=== PATIENT | female | born 1955 | race Caucasian/White ===

== ENCOUNTER 2018-03-11 11:48 | Observation (INO) ==
--- NOTE | 2018-03-11 12:14 | ED ---
HPI General Chief Complaint: Respiratory Symptoms Stated Complaint: Respiratory Issue Time Seen by Provider: 03/11/18 11:53 Source: patient and EMS Mode of arrival: EMS Limitations: no limitations History of Present Illness HPI Narrative: 62 y/o female presents with cough and shortness of breath over the past couple of days. Today she developed some chest pressure that feels like something is sitting on her. She was given aspirin prior to arrival. She was not given any breathing treatments that she was not wheezing. She states she has had cardiac workup but it has been multiple years ago from what she can remember. She states having her sugar in the 300s is actually pretty controlled for her as it usually is in the 500s. MD Complaint: cough Onset (ago): day(s) Duration: intermittent Severity: moderate Relieving factors: nothing Exacerbating factors: nothing Able to tolerate fluids by mouth: Yes Associated symptoms: other (Chest pain) Treatments prior to arrival: aspirin Related Data Allergies Allergy/AdvReac Type Severity Reaction Status Date / Time penicillin G Allergy Severe Swelling Verified 03/11/18 12:04 Sulfa (Sulfonamide Allergy Severe Itching Verified 03/11/18 12:04 Antibiotics) *MDRO Multi-Drug Resistant AdvReac Unknown Itching, Uncoded 03/11/18 12:04 Organism Localized Review of Systems Except as stated in HPI: all other systems reviewed are negative Exam Narrative Exam Narrative: GENERAL: 62-year-old female in no apparent distress SKIN: Focused skin assessment warm/dry. HEAD: Atraumatic. Normocephalic. EYES: Pupils equal and round. No scleral icterus. No injection or drainage. ENT: No nasal bleeding or discharge. Mucous membranes pink and moist. NECK: Trachea midline. No JVD. CARDIOVASCULAR: Regular rate and rhythm. No murmur appreciated. RESPIRATORY: No accessory muscle use. Clear to auscultation. Breath sounds equal bilaterally. GASTROINTESTINAL: Abdomen soft, non-tender, nondistended. MUSCULOSKELETAL: No obvious deformities. No clubbing. No cyanosis. No edema. NEUROLOGICAL: Awake and alert. Motor grossly within normal limits. Normal speech. PSYCHIATRIC: Appropriate mood and affect; insight and judgment normal. Course Reevaluation(s) Reevaluation #1: Patient will intermittently need oxygen when she falls asleep. Likely sleep apnea but will check CT pulmonary to rule out PE Reevaluation #2: CT without PE. Patient no COPD exacerbation currently. Agrees to chest pain center observation for chest pain given cardiac risk factors Initial Documented Vital Signs Temperature 99 F 03/11/18 11:58 Pulse Rate 86 03/11/18 11:58 Respiratory Rate 24 03/11/18 11:58 Blood Pressure 134/82 03/11/18 11:58 Pulse Oximetry 92 L 03/11/18 11:58 Last Documented Vital Signs Temperature 99 F 03/11/18 11:58 Pulse Rate 86 03/11/18 12:14 Respiratory Rate 24 03/11/18 12:14 Blood Pressure 134/82 03/11/18 11:58 Pulse Oximetry 94 L 03/11/18 12:14 Medical Decision Making MDM Narrative Medical decision making narrative: Will check blood work, imaging and dose with DuoNeb to see if this improves her symptoms and reevaluate. Given cardiac risk factors she will need monitoring overnight for further care even though symptoms are atypical Differential Diagnosis Differential Diagnosis: COPD, pneumothorax, AL, gastritis Lab Data Lab results reviewed: Yes I reviewed the patient's lab results. Result diagrams: 03/11/18 12:30 03/11/18 12:30 Lab Results 03/11/18 03/11/18 03/11/18 Range/Units 12:30 12:30 12:30 WBC 9.6 (4.0-11.0) th/mm3 RBC 5.29 (4.00-5.30) mil/mm3 Hgb 14.8 (11.6-15.3) gm/dL Hct 45.6 (35.0-46.0) % MCV 86.1 (80.0-100.0) fL MCH 27.9 (27.0-34.0) pg MCHC 32.4 (32.0-36.0) % RDW 15.6 (11.6-17.2) % Plt Count 235 (150-450) th/mm3 MPV 9.0 (7.0-11.0) fL Neut % (Auto) 67.4 (16.0-70.0) % Lymph % (Auto) 21.8 (9.0-44.0) % [place] % (Auto) 6.7 (0.0-8.0) % Eos % (Auto) 3.4 (0.0-4.0) % Baso % (Auto) 0.7 (0.0-2.0) % Neut # (Auto) 6.5 (1.8-7.7) th/mm3 Lymph # (Auto) 2.1 (1.0-4.8) th/mm3 [place] # (Auto) 0.6 (0.0-0.9) th/mm3 Eos # (Auto) 0.3 (0.0-0.4) th/mm3 Baso # (Auto) 0.1 (0.0-0.2) th/mm3 WBC Differential . Differential Comment Auto diff final PT 10.1 (9.8-11.6) sec INR 1.0 Ratio APTT 21.3 L (24.3-30.1) sec Sodium (136-145) meq/L Potassium (3.5-5.1) meq/L Chloride (98-107) meq/L Carbon Dioxide (21.0-32.0) meq/L Anion Gap (5-15) meq/L BUN (7-18) mg/dL Creatinine (0.50-1.00) mg/dL Estimated GFR (>89) mL/min Random Glucose (74-106) mg/dL Calcium (8.5-10.1) mg/dL Magnesium (1.5-2.5) mg/dL Total Bilirubin (0.2-1.0) mg/dL AST (15-37) U/L ALT (10-53) U/L Alkaline Phosphatase (45-117) U/L Total Creatine Kinase (26-192) U/L Troponin I (0.02-0.05) ng/mL B-Natriuretic Peptide 27 (0-100) pg/mL Total Protein (6.4-8.2) g/dL Albumin (3.4-5.0) g/dL 03/11/18 Range/Units 12:30 WBC (4.0-11.0) th/mm3 RBC (4.00-5.30) mil/mm3 Hgb (11.6-15.3) gm/dL Hct (35.0-46.0) % MCV (80.0-100.0) fL MCH (27.0-34.0) pg MCHC (32.0-36.0) % RDW (11.6-17.2) % Plt Count (150-450) th/mm3 MPV (7.0-11.0) fL Neut % (Auto) (16.0-70.0) % Lymph % (Auto) (9.0-44.0) % [place] % (Auto) (0.0-8.0) % Eos % (Auto) (0.0-4.0) % Baso % (Auto) (0.0-2.0) % Neut # (Auto) (1.8-7.7) th/mm3 Lymph # (Auto) (1.0-4.8) th/mm3 [place] # (Auto) (0.0-0.9) th/mm3 Eos # (Auto) (0.0-0.4) th/mm3 Baso # (Auto) (0.0-0.2) th/mm3 WBC Differential Differential Comment PT (9.8-11.6) sec INR Ratio APTT (24.3-30.1) sec Sodium 140 (136-145) meq/L Potassium 4.2 (3.5-5.1) meq/L Chloride 102 (98-107) meq/L Carbon Dioxide 31.5 (21.0-32.0) meq/L Anion Gap 7 (5-15) meq/L BUN 9 (7-18) mg/dL Creatinine 1.21 H (0.50-1.00) mg/dL Estimated GFR 45 L (>89) mL/min Random Glucose 247 H (74-106) mg/dL Calcium 9.1 (8.5-10.1) mg/dL Magnesium 1.7 (1.5-2.5) mg/dL Total Bilirubin 0.2 (0.2-1.0) mg/dL AST 19 (15-37) U/L ALT 30 (10-53) U/L Alkaline Phosphatase 131 H (45-117) U/L Total Creatine Kinase 32 (26-192) U/L Troponin I Less than 0.02 L (0.02-0.05) ng/mL B-Natriuretic Peptide (0-100) pg/mL Total Protein 7.2 (6.4-8.2) g/dL Albumin 3.1 L (3.4-5.0) g/dL Imaging Data Attestation: I personally reviewed and interpreted this imaging study as follows : Radiologist's impression: Chest X-Ray 03/11/18 11:58 CONCLUSION: No acute cardiopulmonary disease. Chest CTA 03/11/18 13:43 CONCLUSION: 1. The study is negative for pulmonary embolism. 2. Platelike atelectasis in the right upper lobe adjacent to the minor fissure. Discharge Plan Discharge Disposition Patient Disposition: 30 Still Patient Discharge Condition Condition: Stable Discharge Details Diagnosis: Chest pain Physicians Team ED Provider: Elvi Burgess Primary Care Provider: Anika Russell Clinical Status ED Status: Admitted Observ[facility] Medical History Medical History COPD exacerbation (Acute) Diabetes (Acute) HTN (hypertension) (Acute) Social History Social History Substance History: No History of Abuse Smoking Status: Current every day smoker Tobacco Type: Cigarettes How Often Do You Have a Drink Containing Alcohol: Never Recent Travel in [place] within the Last 8 Weeks: No Recent Out of Country Travel within the Last 8 Weeks: No Immunization History Tetanus Immunization: <5 Years
--- NOTE | 2018-03-11 12:27 | XR ---
EXAM DATE: 03/11/2018 12:23 PM EDT AGE/SEX: 62 years / Female INDICATIONS: Shortness of breath and chest pressure. CLINICAL DATA: This is the patient's initial encounter. Patient reports that signs and symptoms have been present for 1 week and indicates a pain score of 0/10. MEDICAL/SURGICAL HISTORY: Chronic obstructive pulmonary disease. None. COMPARISON: [facility] [place], CHEST SINGLE AP, 10/27/2015. . FINDINGS: A single AP view of the chest demonstrates the lungs to be symmetrically aerated without evidence of mass, infiltrate or effusion. The cardiomediastinal contours are unremarkable. Osseous structures a re intact. Overlying echocardiogram leads and oxygen tubing are present. CONCLUSION: No acute cardiopulmonary disease. Electronically signed by: Bryce Ashley MD 03/11/2018 12:25 PM EDT
[2018-03-11 12:43] LABS: Baso # (Auto) 0.1 th/mm3 (0.0-0.2); Baso % (Auto) 0.7 % (0.0-2.0); Eos # (Auto) 0.3 th/mm3 (0.0-0.4); Eos % (Auto) 3.4 % (0.0-4.0); Hematocrit 45.6 % (35.0-46.0); Hemoglobin 14.8 gm/dL (11.6-15.3); Lymph # (Auto) 2.1 th/mm3 (1.0-4.8); Lymph % (Auto) 21.8 % (9.0-44.0); Mean Corpuscular HGB Conc 32.4 % (32.0-36.0); Mean Corpuscular Hemoglobin 27.9 pg (27.0-34.0); Mean Corpuscular Volume 86.1 fL (80.0-100.0); Mono # (Auto) 0.6 th/mm3 (0.0-0.9); Mono % (Auto) 6.7 % (0.0-8.0); Neut # (Auto) 6.5 th/mm3 (1.8-7.7); Neut % (Auto) 67.4 % (16.0-70.0); Platelet Count 235 th/mm3 (150-450); Red Blood Count 5.29 mil/mm3 (4.00-5.30); Red Cell Distribution Width 15.6 % (11.6-17.2); White Blood Count 9.6 th/mm3 (4.0-11.0)
[2018-03-11 13:01] LABS: Albumin 3.1 g/dL (3.4-5.0); Anion Gap 7 meq/L (5-15); Aspartate Aminotransferase 19 U/L (15-37); Blood Urea Nitrogen 9 mg/dL (7-18); Calcium 9.1 mg/dL (8.5-10.1); Carbon Dioxide 31.5 meq/L (21.0-32.0); Chloride 102 meq/L (98-107); Glomerular Filtration Rate 45 mL/min (>89); Glucose,Random 247 mg/dL (74-106); Magnesium 1.7 mg/dL (1.5-2.5); Potassium 4.2 meq/L (3.5-5.1); Sodium 140 meq/L (136-145)
[2018-03-11 13:06] LABS: Alanine Aminotransferase 30 U/L (10-53); Alkaline Phosphatase 131 U/L (45-117); Total Protein 7.2 g/dL (6.4-8.2)
[2018-03-11 13:08] LABS: Activated Partial Thrombo Time 21.3 sec (24.3-30.1); Prothrombin Time 10.1 sec (9.8-11.6)
[2018-03-11 13:09] LABS: Creatine Kinase 32 U/L (26-192)
--- NOTE | 2018-03-11 17:46 | CT ---
EXAM DATE: 03/11/2018 5:37 PM EDT AGE/SEX: 62 years / Female INDICATIONS: Shortness of breath and productive cough; rule out pulmonary embolus. CLINICAL DATA: This is the patient's initial encounter. Patient reports that signs and symptoms have been present for 1 week and indicates a pain score of 0/10. MEDICAL/SURGICAL HISTORY: Chronic obstructive pulmonary disease. Diabetes. Hypertension. None. RADIATION DOSE: 10.74 CTDI (mGy) COMPARISON: No prior exams available for comparison. TECHNIQUE: Volumetric scanning was performed using a multi-row detector CT scanner during bolus infu graciela of 71 ml Omnipaque 350 (iohexol) nonionic water-soluble contrast as a single exam dose. The ubaldo a was post processed with a variety of visualization algorithms including full volume maximum intensi ty projection and sliding thin slab reformation. Using automated exposure control and adjustment of t he mA and/or kV according to patient size, radiation dose was kept as low as reasonably achievable to obtain optimal diagnostic quality images. DICOM format image data is available electronically for r eview and comparison. FINDINGS: Pulmonary Arteries: No filling defects are seen in the pulmonary arteries out to the subsegmental ve ssels. The left and right pulmonary arteries are normal in diameter. Lung: No infiltrates seen. There is platelike atelectasis along the minor fissure in the right upper lobe. Effusion: None. Mediastinum: No evidence of mediastinal or hilar adenopathy. Superior mediastinal lymph nodes measur e up to 1.3 cm. Other: The axilla is unremarkable. CONCLUSION: 1. The study is negative for pulmonary embolism. 2. Platelike atelectasis in the right upper lobe adjacent to the minor fissure. Electronically signed by: Lc Aparicio MD 03/11/2018 5:44 PM EDT
[2018-03-11 18:39] LABS: Creatine Kinase 27 U/L (26-192)
[2018-03-12 00:09] LABS: Creatine Kinase 28 U/L (26-192)
--- NOTE | 2018-03-12 07:38 | P.HPCA ---
History of Present Illness Primary Care Physician: Anika [facility] Chief Complaint: Chest pain History of Present Illness: 62 year old female with history of diabetes, hypertension, COPD, and current smoker presents to ER for further evaluation of chest pain. Onset x1 week. Location substernal. Characterizes as "someone sitting on my chest." No radiation. Duration constant. No associated symptoms of nausea, vomiting, or diaphoresis. Associated symptoms include dyspnea. Hurts to take a deep breath. Productive cough, yellow sputum, wheezing, and fever. No precipitating or relieving factors. Came to ER for further evaluation due to prolonged discomfort without improvement. Recently moved from [facility] to [place] and does not have a PCP. Denies similar pain in the past. No known coronary artery disease. No change in appetite. No vomiting. Frequent loose stools for "at least one month." No sick contacts. Past cardiac testing 11/09/11 Cardiac catheterization (Dr. Odom) Conclusion: 1. Angiographically minimal to mild tow vessel coronary artery disease in a right dominant system. 2. Normal left ventricular systolic function, ejection fraction 60%. 3. Strongly recommend smoking cessation. Family history noncontributory for early onset cardiovascular disease. - Diagnosis (1) Chest pain made worse by breathing (2) H/O type 2 diabetes mellitus (3) H/O: hypertension (4) Smoking (5) History of chronic obstructive pulmonary disease (6) Frequent loose stools Review of Systems Constitutional: Reports fever(s), Denies anorexia, Denies body ache(s), Denies fatigue, Denies headache(s), Denies lack of energy Respiratory: Reports change in phlegm color, Reports chest congestion, Reports cough, Reports pain on inspiration, Reports pain with cough, Reports shortness of breath, Reports shortness of breath with activity, Reports wheezing, Denies coughing up blood Comments: x1 week productive cough, wheezing, dyspnea. Home O2/3L at night. Increase use of albuterol nebulizer treatments this week, using BID Gastrointestinal: Reports change in bowel habits, Reports loose stools, Denies abdominal pain, Denies black, tarry stools, Denies bright, red blood in stools Comments: Loose stol x4 days, no change in appetite. Musculoskeletal: Denies body aches, Denies limited joint movement PMFSH - History History Provided By: Patient - Medical History Medical History: Medical History (Last Updated 03/12/18 @ 10:53 by JO Max) COPD exacerbation Dependence on nocturnal oxygen therapy Diabetes HTN (hypertension) - Tobacco History Second Hand Smoke Exposure: Yes Tobacco Use In Past 30 Days: Yes Smoking Status: Current every day smoker Tobacco Type: Cigarettes Packs Per Day: 0.5 (quit for 3 months, recently restarted tobacco use) Years Smoked: 40 - Alcohol History How Often Do You Have a Drink Containing Alcohol: Never - Substance Use History Substance History: No History of Abuse - Travel History History of Recent Travel: No Recent Travel in the [place] Within the Last 8 Weeks: No Recent Travel Out of the Country Within the Last 8 Weeks: No - Immunization History Tetanus Immunization: <5 Years Medications and Allergies Active Medications: Active Medications Sodium Chloride (Ns Flush) 2 ml IV.FLUSH UNSCH PRN PRN Reason: FLUSH AFTER USING IV ACCESS Sodium Chloride (Ns Flush) 2 ml IV.FLUSH BID BONNY Last Admin: 03/11/18 23:26 Dose: 2 ml Sodium Chloride (Ns Flush) 2 ml IV.FLUSH PRN PRN PRN Reason: FLUSH AFTER USING IV ACCESS Allergies Allergy/AdvReac Type Severity Reaction Status Date / Time penicillin G Allergy Severe Swelling Verified 03/11/18 12:04 Sulfa (Sulfonamide Allergy Severe Itching Verified 03/11/18 12:04 Antibiotics) *MDRO Multi-Drug Resistant AdvReac Unknown Itching, Uncoded 03/11/18 12:04 Organism Localized Home Medications Medication Instructions Recorded Confirmed Type amlodipine [Norvasc] 5 mg PO DAILY 03/11/18 03/11/18 History gabapentin [Neurontin] 300 mg PO TID 03/12/18 03/12/18 History insulin aspart U-100 [Novolog 30 unit SUB-Q TID 03/12/18 03/12/18 History U-100 Insulin aspart] insulin glargine [Lantus U-100 54 unit SUB-Q DAILY 03/12/18 03/12/18 History Insulin] umeclidinium-vilanterol [Anoro 1 inh INHALATION Q24H 03/12/18 03/12/18 History Ellipta] Exam Vital signs: Vital Signs 03/11/18 11:58 03/11/18 12:14 03/11/18 19:39 Temperature 99 F Pulse Rate 86 86 72 Respiratory Rate 24 24 22 Blood Pressure 134/82 134/84 Pulse Oximetry 92 L 94 L 96 03/11/18 20:00 03/11/18 23:10 03/12/18 00:33 Temperature 98.7 F 97.9 F Pulse Rate 72 68 69 Respiratory Rate 16 16 Blood Pressure 152/85 H 163/92 H Pulse Oximetry 94 L 94 L 03/12/18 03:37 Temperature 97.6 F Pulse Rate 70 Respiratory Rate 15 Blood Pressure 172/90 H Pulse Oximetry 94 L Narrative: female who appears older than stated age - Constitutional no acute distress, obese, cooperative - Routine HEENT Exam Head: Present: normocephalic, atraumatic - Routine Neck Exam Present: supple, full ROM. Absent: JVD - Routine Chest/Breast/Axilla Exam Chest wall: Absent: tenderness - Routine Respiratory Exam Present: prolonged expiratory phase, diminished air movement. Absent: rhonchi, wheezes, crackles - Routine Cardiovascular Exam Present: RRR. Absent: murmur, gallop, rubs - Routine Abdominal Exam Present: soft, normoactive bowel sounds. Absent: tenderness - Routine Extremities Exam Present: edema, full ROM, pulses intact - Routine Skin Exam Present: intact, warm, scars - Routine Neurological Exam Present: alert, oriented X3, CN II-XII intact, moving all extremities, normal tone, normal speech - Routine Psychiatric Exam Present: normal affect, normal thought process, cooperative, good insight, good judgment Results 03/11/18 12:30 03/11/18 12:30 Cardiac Enzymes 03/11/18 03/11/18 03/11/18 Range/Units 12:30 12:30 18:00 AST 19 (15-37) U/L Troponin I Less than 0.02 L Less than 0.02 L (0.02-0.05) ng/mL B-Natriuretic Peptide 27 (0-100) pg/mL 03/11/18 Range/Units 23:30 AST (15-37) U/L Troponin I Less than 0.02 L (0.02-0.05) ng/mL B-Natriuretic Peptide (0-100) pg/mL Coagulation 03/11/18 03/11/18 Range/Units 12:30 12:30 PT 10.1 (9.8-11.6) sec APTT 21.3 L (24.3-30.1) sec B-Natriuretic Peptide 27 (0-100) pg/mL CBC 03/11/18 Range/Units 12:30 WBC 9.6 (4.0-11.0) th/mm3 RBC 5.29 (4.00-5.30) mil/mm3 Hgb 14.8 (11.6-15.3) gm/dL Hct 45.6 (35.0-46.0) % Plt Count 235 (150-450) th/mm3 Neut # (Auto) 6.5 (1.8-7.7) th/mm3 Lymph # (Auto) 2.1 (1.0-4.8) th/mm3 [place] # (Auto) 0.6 (0.0-0.9) th/mm3 Eos # (Auto) 0.3 (0.0-0.4) th/mm3 Baso # (Auto) 0.1 (0.0-0.2) th/mm3 Comprehensive Metabolic Panel 03/11/18 Range/Units 12:30 Sodium 140 (136-145) meq/L Potassium 4.2 (3.5-5.1) meq/L Chloride 102 (98-107) meq/L Carbon Dioxide 31.5 (21.0-32.0) meq/L BUN 9 (7-18) mg/dL Creatinine 1.21 H (0.50-1.00) mg/dL Calcium 9.1 (8.5-10.1) mg/dL AST 19 (15-37) U/L ALT 30 (10-53) U/L Alkaline Phosphatase 131 H (45-117) U/L Total Protein 7.2 (6.4-8.2) g/dL Albumin 3.1 L (3.4-5.0) g/dL EKG interpretations - EKG EKG results cardiology: WNL, sinus rhythm, normal QRS, normal ST/T (NSR, LAD, no st t segment changes) Caprini VTE Risk Assessment Caprini VTE Risk Assessment: Moderate/High Risk (score >= 2) Caprini Risk Assessment Model: Point Value = 1 Point Value = 2 Point Value = 3 Point Value = 5 Age 41-60 Minor surgery BMI > 25 kg/m2 Swollen legs Varicose veins or History of unexplained or recurrent spontaneous Oral contraceptives or hormone replacement Sepsis (< 1 month) Serious lung disease, including pneumonia (< 1 month) Abnormal pulmonary function Acute myocardial infarction Congestive heart failure (< 1 month) History of inflammatory bowel disease Medical patient at bed rest Age 61-74 Arthroscopic surgery Major open surgery (> 45 min) Laparoscopic surgery (> 45 min) Malignancy Confined to bed (> 72 hours) Immobilizing plaster cast Central venous access Age >= 75 History of VTE Family history of VTE Factor V Leiden Prothrombin [id number] Lupus anticoagulant Anticardiolipin antibodies Elevated serum homocysteine Heparin-induced thrombocytopenia Other congenital or acquired thrombophilia Stroke (< 1 month) Elective arthroplasty Hip, pelvis, or leg fracture Acute spinal cord injury (< 1 month) Prophylaxis Regimen: Total Risk Factor Score Risk Level Prophylaxis Regimen 0-1 Low Early ambulation 2 Moderate Order ONE of the following: *Sequential Compression Device (SCD) *Heparin 5000 units SQ BID 3-4 Higher Order ONE of the following medications: *Heparin 5000 units SQ TID *Enoxaparin/Lovenox 40 mg SQ daily (WT < 150 kg, CrCl > 30 mL/min) *Enoxaparin/Lovenox 30 mg SQ daily (WT < 150 kg, CrCl > 10-29 mL/min) *Enoxaparin/Lovenox 30 mg SQ BID (WT < 150 kg, CrCl > 30 mL/min) AND/OR *Sequential Compression Device (SCD) 5 or more Highest Order ONE of the following medications: *Heparin 5000 units SQ TID (Preferred with Epidurals) *Enoxaparin/Lovenox 40 mg SQ daily (WT < 150 kg, CrCl > 30 mL/min) *Enoxaparin/Lovenox 30 mg SQ daily (WT < 150 kg, CrCl > 10-29 mL/min) *Enoxaparin/Lovenox 30 mg SQ BID (WT < 150 kg, CrCl > 30 mL/min) AND *Sequential Compression Device (SCD) Assessment and Plan - Assessment (1) Chest pain made worse by breathing Code(s): R07.1 - Chest pain on breathing Status: Acute Onset Date: ~ Plan: Admitted to chest pain center. ACS ruled out with 3 sets of EKGs and cardiac enzymes. Seen and evaluation by Dr. Kaylan Lacey. Discomfort pleuritic in nature, however due to multiple risks factors proceed with myocardial perfusion study this morning. If unremarkable, plans to discharge home with follow up with PCP. CTA negative for PE, no acute physical findings to explain pain made worse with breathing. Smoking cessation strongly encouraged. (2) H/O type 2 diabetes mellitus Code(s): Z86.39 - Personal history of other endocrine, nutritional and metabolic disease Status: Chronic Plan: SSI moderate dose coverage. Discussed importance of tight blood sugar control instructed to establish with a local primary care provider. Verbalized understanding. (3) H/O: hypertension Code(s): Z86.79 - Personal history of other diseases of the circulatory system Status: Chronic Plan: Continue amlodipine. Continue to monitor blood pressure, likely will require dosing increase from 5 mg to 10 mg daily and discharging home on betablocker. Smoking cessation encouraged. Instructed to keep daily sodium intake to no more than 2000mg daily. Follow up with primary care provider. (4) Smoking Code(s): F17.200 - Nicotine dependence, unspecified, uncomplicated Status: Chronic Plan: Strongly encouraged and stressed the importance of smoking cessation. Instructed to quit smoking, especially with known COPD and being oxygen dependent. Made aware of [place] Quit Smoking campaign and services available to her to assist in smoking cessation. (5) History of chronic obstructive pulmonary disease Code(s): Z87.09 - Personal history of other diseases of the respiratory system Status: Chronic Plan: Continue daily inhaler as previously ordered once all medication reconciled. Albuterol every 6 hours as needed as needed for shortness of breath or wheezing. Smoking cessation discussed. (6) Frequent loose stools Code(s): R19.7 - Diarrhea, unspecified Status: Chronic Plan: Establish with a primary care provider. No acute findings on labs or physical assessment. Verbalized she will obtain a new local primary care provider with hopes of reconnecting with Dr. Nguyen. H&P: Quality - VTE Deep Vein Thrombosis/Pulmonary Embolism Present on Admission: No (6) Frequent loose stools Qualifiers: Diarrhea type: unspecified type Qualified Code(s): R19.7 - Diarrhea, unspecified
[2018-03-12] MEDS ORDERED: Acetaminophen 500 MG Tablet PO PRN (10:30)
[2018-03-12] MEDS ORDERED: Dextrose 50% in Water 50 ML Vial IV.PUSH PRN (10:33)
[2018-03-12] MEDS ORDERED: Regadenoson Inj 0.4 MG/5 ML Syringe IV.PUSH ONE (10:41)
[2018-03-12] MEDS ORDERED: Aspirin 325 MG Tablet PO SCH (11:00)
[2018-03-12] MEDS ORDERED: Insulin NovoLOG Aspart Correctional Sugar Inj SQ SCH (12:00)
[2018-03-12] MEDS ORDERED: amLODIPine 5 MG Tablet PO SCH (12:00)
--- NOTE | 2018-03-12 12:01 | NM ---
EXAM DATE: 03/12/2018 11:32 AM EDT AGE/SEX: 62 years / Female INDICATIONS:Angina. . Substernal chest pain with dyspnea. CLINICAL DATA: This is the patient's initial encounter. Patient reports that signs and symptoms have been present for 1 day and indicates a pain score of 5/10. MEDICAL/SURGICAL HISTORY: Chronic obstructive pulmonary disease. Diabetes mellitus type II. H ypertension. None. COMPARISON: No prior exams available for comparison. DOSE: 8.1 mCi Tc 99m Myoview at rest 25.4 mCi [id number] at stress 0.4 mg Lexiscan STRESS SYMPTOMS: Dyspnea and chest pain. EJECTION FRACTION: >70 % TECHNIQUE: The patient underwent pharmacologic stress with infusion of prescribed dose. Continuous ECG tracing was monitored during stress. Gated SPECT imaging was performed after stress and conventi onal SPECT imaging was performed at rest. The examination was performed on a SPECT/CT scanner, both attenuation and non-corrected datasets were reviewed. FINDINGS: Distribution: The maximum perfused segment at stress is in the anteroseptal wall. Perfusion Study: The pattern of perfusion at stress is within normal limits. Gated Study: There are intact wall motion and wall thickening without hypokinetic or dyskinetic segm ents. The ejection fraction is calculated at >70%. RISK CATEGORY: Low (<1% Annual Motality Rate) CONCLUSION: Negative examination. Electronically signed by: Salvador Rico MD 03/12/2018 11:59 AM EDT
[2018-03-12 13:22] VITALS: BP 173/90; PULSE 81; RESP 18; TEMP 98; O2SAT 92
--- NOTE | 2018-03-12 16:27 | TR ---
Date Performed: 03/12/2018 Time Performed: 10:43:21 DOCTOR: Kaylan Lacey DRUG LIST: CLINICAL HISTORY: REASON FOR TEST: REASON FOR ENDING: OBSERVATION: CONCLUSION: Lexiscan stress test was performed under standard four minute protocol. Radionuclid e was injected one minute prior to ending the test. No electrocardiographic abormalities were present to suggest ischemia. Nuclear imaging and interpretation are pending. COMMENTS: no ischemia
--- NOTE | 2018-03-12 16:30 | ECG ---
Date Performed: 03/11/2018 Time Performed: 18:28:56 PTAGE: 62 years EKG: Sinus rhythm POSSIBLE RIGHT VENTRICULAR HYPERTROPHY ABNORMAL ECG Since PREVIOUS TRACING , no significant change noted PREVIOUS TRACIN10/27/2015 21.46 DOCTOR: Kaylan Lacey Interpretating Date/Time 03/12/2018 16:28:27
--- NOTE | 2018-03-12 16:30 | ECG ---
Date Performed: 03/11/2018 Time Performed: 19:44:16 PTAGE: 62 years EKG: Sinus rhythm MARKED RIGHT AXIS DEVIATION ABNORMAL ECG Since PREVIOUS TRACING , no significant change noted DOCTOR: Kaylan Lacey Interpretating Date/Time 03/12/2018 16:28:55
--- NOTE | 2018-03-13 07:01 | ECG ---
Date Performed: 03/11/2018 Time Performed: 20:56:39 PTAGE: 62 years EKG: Sinus rhythm MARKED RIGHT AXIS DEVIATION ABNORMAL ECG PREVIOUS TRACING : 03/11/2018 18.28 Since the previous tracing, no significant change noted DOCTOR: Sumit Flores Interpretating Date/Time 03/13/2018 07:00:14
== END 2018-03-12 14:57 | disposition home or self-care (01) ==
LOC: NEPHCDU 11:48 → NEPC 11:48 → NEDA 11:48 → NEPHCDU 20:08

== ENCOUNTER 2018-04-14 18:42 | Inpatient (IN) ==
[2018-04-14] MEDS ORDERED: MethylPREDNISolone Sod Succinate Inj 125 MG/2 ML Vial IV.PUSH ONE (19:03)
--- NOTE | 2018-04-14 19:24 | XR ---
EXAM DATE: 04/14/2018 7:18 PM EDT AGE/SEX: 62 years / Female INDICATIONS: Shortness of breath. CLINICAL DATA: This is the patient's initial encounter. Patient reports that signs and symptoms have been present for 1 day and indicates a pain score of 0/10. MEDICAL/SURGICAL HISTORY: Hypertension. Chronic obstructive pulmonary disease. Diabetes. None . COMPARISON: [facility] – [place], CHEST 1V SINGLE AP, 03/11/2018. . FINDINGS: Bilateral midlung airspace disease characteristic of atelectasis is noted. Lungs are otherwise clear without evidence of consolidating infiltrates. Heart and mediastinal structures are stable. CONCLUSION: Mild bilateral mid lung atelectasis. No other evidence of acute cardiopulmonary process. Electronically signed by: Cristobal Arana MD 04/14/2018 7:23 PM EDT
--- NOTE | 2018-04-14 20:11 | ED ---
HPI General Chief complaint: Respiratory Symptoms Stated complaint: Evac/Respiratory Time Seen by Provider: 04/14/18 19:03 Source: patient and old records reviewed Mode of arrival: ambulatory Limitations: no limitations History of Present Illness HPI narrative: Is a 62-year-old woman presents to the emergency department complaining of 3 shortness of breath and left-sided chest discomfort. She is a history of COPD. She is normally on oxygen just at night. Over the day she is needed at 24 7 and has not really alleviated her shortness of breath. History significant for recent COPD exacerbation with development of DVT in the right leg. She was discharged a couple weeks ago. She was on Xarelto. She is taking the Xarelto regularly as prescribed. She reports that she fell about 4 days ago, has had headache over the past 3 days it is moderately severe. Over the past several days she also has gotten worsening shortness of breath, dyspnea on exertion, and chest discomfort. Use of her home COPD medications has not helped her shortness of breath and she is never had this type of chest discomfort before. No history of CAD. She also feels like her right leg pain and swelling is gotten worse over the past week or so despite taking the Xarelto. No other complaints. Related Data Home Medications Medication Instructions Recorded Confirmed gabapentin [Neurontin] 300 mg PO TID 03/12/18 04/14/18 insulin aspart U-100 [Novolog 30 unit SUB-Q TID 03/12/18 04/14/18 U-100 Insulin aspart] insulin glargine [Lantus U-100 54 unit SUB-Q DAILY 03/12/18 04/14/18 Insulin] umeclidinium-vilanterol [Anoro 1 inh INHALATION Q24H 03/12/18 04/14/18 Ellipta] Previous Rx's Medication Instructions Recorded amlodipine 10 mg PO DAILY #30 tab 03/12/18 amlodipine [Norvasc] 10 mg PO DAILY #30 tab 03/12/18 carvedilol 3.125 mg PO BID #60 tab 03/12/18 rivaroxaban [Xarelto] 15 mg PO BID 21 Days #42 tab 03/27/18 Allergies Allergy/AdvReac Type Severity Reaction Status Date / Time penicillin G Allergy Severe Swelling Verified 04/14/18 18:48 Sulfa (Sulfonamide Allergy Severe Itching Verified 04/14/18 18:48 Antibiotics) *MDRO Multi-Drug Resistant AdvReac Unknown Itching, Uncoded 04/14/18 18:48 Organism Localized Review of Systems ROS: all other systems reviewed are negative [facility] Medical History Medical History Dependence on nocturnal oxygen therapy (Acute) HTN (hypertension) (Acute) Diabetes (Acute) COPD exacerbation (Acute) DVT (deep venous thrombosis) (Acute ~02/2018) Social History Social History Substance History: No History of Abuse Second Hand Smoke Exposure: No Smoking Status: Current every day smoker Tobacco Type: Cigarettes Packs Per Day: 0.5 (quit for 3 months, recently restarted tobacco use) Cigarettes Per Day: 10.0 Years Smoked: 40 Pack-Years: 20.00 How Often Do You Have a Drink Containing Alcohol: Never Hx Recent Travel: No Recent Travel in [facility] within the Last 8 Weeks: No Recent Out of Country Travel within the Last 8 Weeks: No Immunization History Tetanus Immunization: Unsure Hx Influenza Vaccine This Season: Yes Exam Narrative Exam Narrative: GENERAL: 62-year-old woman, little bit ill-appearing, nontoxic, nonlabored. SKIN: Focused skin assessment warm/dry. HEAD: Atraumatic. Normocephalic. EYES: Pupils equal and round. No scleral icterus. No injection or drainage. ENT: No nasal bleeding or discharge. Mucous membranes pink and moist. NECK: Trachea midline. No JVD. CARDIOVASCULAR: Regular rate and rhythm. No murmur appreciated. RESPIRATORY: No significant respiratory distress. She has coarse breath sounds or rales in both bases, right greater than left, with minimal wheezing. Good air movement. GASTROINTESTINAL: Abdomen soft, non-tender, nondistended. Hepatic and splenic margins not palpable. MUSCULOSKELETAL: No obvious deformities. Marked asymmetric leg swelling of right lower extremity edema. Is a little bit of warmth. Some calf tenderness. NEUROLOGICAL: Awake and alert. No obvious cranial nerve deficits. Motor grossly within normal limits. Normal speech. Course Initial Documented Vital Signs Temperature 97.8 F 04/14/18 18:48 Pulse Rate 90 04/14/18 18:48 Respiratory Rate 20 04/14/18 18:48 Blood Pressure 180/102 H 04/14/18 18:48 Pulse Oximetry 94 L 04/14/18 18:48 Last Documented Vital Signs Temperature 97.8 F 04/14/18 18:48 Pulse Rate 77 04/14/18 20:34 Respiratory Rate 20 04/14/18 20:34 Blood Pressure 172/89 H 04/14/18 20:34 Pulse Oximetry 94 L 04/14/18 20:34 Medical Decision Making MDM Narrative Medical decision making narrative: 62-year-old woman presents emergency department worsening chest pain shortness of breath in the setting of known DVT. She is not hypoxic now but she is on oxygen. High risk for PE. She has some rales in the right base also could be developing pneumonia. I will here tunneled wheezing for COPD exacerbation also possible. Will check chest x-ray, CT pulmonary angiogram, labs, reassess. Likely admission. Medical Screen Exam Complete: Yes Emergency Medical Condition: Yes Lab Data Lab results reviewed: Yes I reviewed the patient's lab results. Result diagrams: 04/14/18 19:40 04/14/18 19:40 Lab Results 04/14/18 04/14/18 04/14/18 Range/Units 19:40 19:40 19:40 WBC 8.8 (4.0-11.0) th/mm3 RBC 5.16 (4.00-5.30) mil/mm3 Hgb 14.4 (11.6-15.3) gm/dL Hct 43.8 (35.0-46.0) % MCV 84.7 (80.0-100.0) fL MCH 27.9 (27.0-34.0) pg MCHC 33.0 (32.0-36.0) % RDW 15.7 (11.6-17.2) % Plt Count 270 (150-450) th/mm3 MPV 9.1 (7.0-11.0) fL Neut % (Auto) 64.8 (16.0-70.0) % Lymph % (Auto) 25.8 (9.0-44.0) % Meade % (Auto) 5.6 (0.0-8.0) % Eos % (Auto) 3.1 (0.0-4.0) % Baso % (Auto) 0.7 (0.0-2.0) % Neut # (Auto) 5.7 (1.8-7.7) th/mm3 Lymph # (Auto) 2.3 (1.0-4.8) th/mm3 Meade # (Auto) 0.5 (0.0-0.9) th/mm3 Eos # (Auto) 0.3 (0.0-0.4) th/mm3 Baso # (Auto) 0.1 (0.0-0.2) th/mm3 WBC Differential . Differential Comment Auto diff final PT 10.3 (9.8-11.6) sec INR 1.0 Ratio APTT 22.6 L (24.3-30.1) sec Sodium 137 (136-145) meq/L Potassium 3.5 (3.5-5.1) meq/L Chloride 95 L (98-107) meq/L Carbon Dioxide 33.1 H (21.0-32.0) meq/L Anion Gap 9 (5-15) meq/L BUN 12 (7-18) mg/dL Creatinine 1.05 H (0.50-1.00) mg/dL Estimated GFR 53 L (>89) mL/min Random Glucose 345 H (74-106) mg/dL Calcium 8.5 (8.5-10.1) mg/dL Total Bilirubin 0.3 (0.2-1.0) mg/dL AST 15 (15-37) U/L ALT 16 (10-53) U/L Alkaline Phosphatase 89 (45-117) U/L Troponin I Less than 0.02 L (0.02-0.05) ng/mL B-Natriuretic Peptide (0-100) pg/mL Total Protein 7.3 (6.4-8.2) g/dL Albumin 2.6 L (3.4-5.0) g/dL 04/14/18 Range/Units 19:40 WBC (4.0-11.0) th/mm3 RBC (4.00-5.30) mil/mm3 Hgb (11.6-15.3) gm/dL Hct (35.0-46.0) % MCV (80.0-100.0) fL MCH (27.0-34.0) pg MCHC (32.0-36.0) % RDW (11.6-17.2) % Plt Count (150-450) th/mm3 MPV (7.0-11.0) fL Neut % (Auto) (16.0-70.0) % Lymph % (Auto) (9.0-44.0) % Meade % (Auto) (0.0-8.0) % Eos % (Auto) (0.0-4.0) % Baso % (Auto) (0.0-2.0) % Neut # (Auto) (1.8-7.7) th/mm3 Lymph # (Auto) (1.0-4.8) th/mm3 Meade # (Auto) (0.0-0.9) th/mm3 Eos # (Auto) (0.0-0.4) th/mm3 Baso # (Auto) (0.0-0.2) th/mm3 WBC Differential Differential Comment PT (9.8-11.6) sec INR Ratio APTT (24.3-30.1) sec Sodium (136-145) meq/L Potassium (3.5-5.1) meq/L Chloride (98-107) meq/L Carbon Dioxide (21.0-32.0) meq/L Anion Gap (5-15) meq/L BUN (7-18) mg/dL Creatinine (0.50-1.00) mg/dL Estimated GFR (>89) mL/min Random Glucose (74-106) mg/dL Calcium (8.5-10.1) mg/dL Total Bilirubin (0.2-1.0) mg/dL AST (15-37) U/L ALT (10-53) U/L Alkaline Phosphatase (45-117) U/L Troponin I (0.02-0.05) ng/mL B-Natriuretic Peptide 92 (0-100) pg/mL Total Protein (6.4-8.2) g/dL Albumin (3.4-5.0) g/dL Imaging Data Radiologist's impression: Chest X-Ray 04/14/18 19:03 CONCLUSION: Mild bilateral mid lung atelectasis. No other evidence of acute cardiopulmonary process. Chest CTA 04/14/18 19:04 CONCLUSION: 1. Bilateral subsegmental and subsegmental pulmonary emboli predominantly in the lower lobes. 2. Left lower lobe consolidating airspace disease with parapneumonic effusion. 3. Minimal atelectasis left base. + for PE and possible PNA ECG Data Attestation: I personally reviewed and interpreted this ECG as follows: Interpretation: Normal sinus rhythm at a rate of 79, borderline right axis deviation, normal intervals, no acute ischemia. Discharge Plan Discharge Disposition Patient Disposition: 30 Still Patient Physicians Team ED Provider: Jose Luis Hernandez Primary Care Provider: Primary Care Celia Winters Attending Provider: Laurel Corbett Other Providers: Mounaa,Eladio Discharge Interventions Interventions: Vital Signs Last Done: 04/14/18 20:34 Status ED Status: Admitted Patient
[2018-04-14 20:39] LABS: Baso # (Auto) 0.1 th/mm3 (0.0-0.2); Baso % (Auto) 0.7 % (0.0-2.0); Eos # (Auto) 0.3 th/mm3 (0.0-0.4); Eos % (Auto) 3.1 % (0.0-4.0); Hematocrit 43.8 % (35.0-46.0); Hemoglobin 14.4 gm/dL (11.6-15.3); Lymph # (Auto) 2.3 th/mm3 (1.0-4.8); Lymph % (Auto) 25.8 % (9.0-44.0); Mean Corpuscular Hemoglobin 27.9 pg (27.0-34.0); Mean Corpuscular Volume 84.7 fL (80.0-100.0); Mean Platelet Volume 9.1 fL (7.0-11.0); Mono # (Auto) 0.5 th/mm3 (0.0-0.9); Mono % (Auto) 5.6 % (0.0-8.0); Neut # (Auto) 5.7 th/mm3 (1.8-7.7); Neut % (Auto) 64.8 % (16.0-70.0); Platelet Count 270 th/mm3 (150-450); Red Blood Count 5.16 mil/mm3 (4.00-5.30); Red Cell Distribution Width 15.7 % (11.6-17.2); White Blood Count 8.8 th/mm3 (4.0-11.0)
[2018-04-14 20:42] LABS: Activated Partial Thrombo Time 22.6 sec (24.3-30.1); Prothrombin Time 10.3 sec (9.8-11.6)
[2018-04-14 20:52] LABS: Albumin 2.6 g/dL (3.4-5.0); Anion Gap 9 meq/L (5-15); Aspartate Aminotransferase 15 U/L (15-37); Blood Urea Nitrogen 12 mg/dL (7-18); Calcium 8.5 mg/dL (8.5-10.1); Carbon Dioxide 33.1 meq/L (21.0-32.0); Chloride 95 meq/L (98-107); Glomerular Filtration Rate 53 mL/min (>89); Glucose,Random 345 mg/dL (74-106); Potassium 3.5 meq/L (3.5-5.1); Sodium 137 meq/L (136-145)
[2018-04-14 20:53] LABS: Alanine Aminotransferase 16 U/L (10-53)
[2018-04-14 20:57] LABS: Alkaline Phosphatase 89 U/L (45-117); Total Protein 7.3 g/dL (6.4-8.2)
--- NOTE | 2018-04-14 21:27 | CT ---
EXAM DATE: 04/14/2018 9:18 PM EDT AGE/SEX: 62 years / Female INDICATIONS: Left chest pain. Short of breath. CLINICAL DATA: This is the patient's initial encounter. Patient reports that signs and symptoms have been present for 1 week and indicates a pain score of 5/10. MEDICAL/SURGICAL HISTORY: Deep venous thrombosis. Diabetes. Chronic obstructive pulmonary disease . Hypertension. None. RADIATION DOSE: 10.58 CTDI (mGy) COMPARISON: C, CTA PULMONARY W CONTRAST W 3D, 03/11/2018. . TECHNIQUE: Volumetric scanning was performed using a multi-row detector CT scanner during bolus infu graciela of 75 ml Omnipaque 350 (iohexol) nonionic water-soluble contrast as a single exam dose. The ubaldo a was post processed with a variety of visualization algorithms including full volume maximum intensi ty projection and sliding thin slab reformation. Using automated exposure control and adjustment of t he mA and/or kV according to patient size, radiation dose was kept as low as reasonably achievable to obtain optimal diagnostic quality images. DICOM format image data is available electronically for r eview and comparison. FINDINGS: Pulmonary Arteries: Subsegmental and segmental pulmonary arterial filling defects are identified in both lower lobes. There is no significant thrombus identified in the main pulmonary arteries. Lung: Subsegmental airspace disease is identified in the left lower lobe. There is mild atelectasis in the right base. Effusion: Small effusion is identified in the left lung base. Mediastinum: No evidence of mediastinal or hilar adenopathy. Other: The axilla is unremarkable. CONCLUSION: 1. Bilateral subsegmental and subsegmental pulmonary emboli predominantly in the lower lobes. 2. Left lower lobe consolidating airspace disease with parapneumonic effusion. 3. Minimal atelectasis left base. Electronically signed by: Cristobal Arana MD 04/14/2018 9:25 PM EDT
[2018-04-14] MEDS ORDERED: Azithromycin Inj 500 MG in Sodium Chlor 0.9% Inj 250 ML IV.SIG ONE (21:39)
[2018-04-14] MEDS ORDERED: Bisacodyl 10 MG Supp RECTAL PRN (21:43)
[2018-04-14] MEDS ORDERED: Acetaminophen 325 MG Tablet PO PRN (21:43)
[2018-04-14] MEDS ORDERED: Dextrose 50% in Water 50 ML Vial IV.PUSH PRN (21:45)
--- NOTE | 2018-04-14 21:46 | P.HPIM ---
History of Present Illness Primary Care Physician: No Primary Care Physician History of Present Illness: This is a 67-year-old female with a PMH of HTN, COPD, DM and RLE DVT on Xarelto who presented to the ER w/ complaints of SOB and chest pain x3 days. Seen in ER on 03/27/18 for c/o right leg pain, RLE Doppler w/ occlusive thrombus, d/c'd home on Xarelto. Reports ongoing right leg pain, severe, 10/10, non-radiating. States she was unable to fill Xarelto for several days, but reports compliance now. Notes progressive SOB and chest pain x3 days, no fever or chills, denies cough or sick contacts. On arrival, BP 172/89, HR 76, O2 sat 94 % on RA, Afebrile. CBC unremarkable. INR 1.0. Chemistry essentially at baseline. Troponin negative. CTA Chest with bilateral subsegmental pulmonary emboli predominantly in the lower lobes, left lower lobe consolidating airspace disease with parapneumonic effusion. S/p Rocephin/Zithro in ER. - Diagnosis (1) Chest pain (2) PE (pulmonary thromboembolism) (3) COPD (chronic obstructive pulmonary disease) (4) PNA (pneumonia) (5) Diabetes Inpatient Certification: I certify that the inpatient services were ordered in accordance with Medicare regulations governing the order. This includes certification that hospital inpatient services are reasonable and necessary and in the case of services not specified as inpatient-only under 42 CFR 419.22(n), that they are appropriately provided as inpatient services in accordance to with the 2-midnight benchmark under 43 CFR 412.3(e) Estimated Total Length of Stay (Days): 2 Plans for Post Hospital Care: Not yet determined Review of Systems PAST FAMILY HISTORY: Reviewed. No h/o DM or CAD All other systems reviewed negative except as stated in HPI PMFSH - History History Provided By: Patient - Medical History Medical History: Medical History (Last Reviewed 04/14/18 @ 20:09 by Jose Luis Hernandez MD) Dependence on nocturnal oxygen therapy (Acute) HTN (hypertension) (Acute) Diabetes (Acute) COPD exacerbation (Acute) DVT (deep venous thrombosis) Onset Date: ~02/2018 - Tobacco History Second Hand Smoke Exposure: No Tobacco Use In Past 30 Days: Yes Smoking Status: Current every day smoker Tobacco Type: Cigarettes Packs Per Day: 0.5 (quit for 3 months, recently restarted tobacco use) Years Smoked: 40 - Alcohol History How Often Do You Have a Drink Containing Alcohol: Never - Substance Use History Substance History: No History of Abuse - Travel History History of Recent Travel: No Recent Travel in the [place] Within the Last 8 Weeks: No Recent Travel Out of the Country Within the Last 8 Weeks: No - Immunization History Tetanus Immunization: Unsure Hx Influenza Vaccine This Season: Yes Medications and Allergies Active Medications: Active Medications Acetaminophen (Tylenol) 650 mg PO Q4H PRN PRN Reason: Temp > 100.4 Albuterol (Duoneb Neb (Prn)) 1 ampul NEB Q15M PRN PRN Reason: WHEEZING Albuterol (Duoneb Neb (Prn)) 1 ampul NEB Q4HR NEB PRN PRN Reason: SOB/WHEEZING Bisacodyl (Dulcolax Supp) 10 mg RECTAL DAILY PRN PRN Reason: SEVERE CONSITIPATION Budesonide/Formoterol Fumarate (Symbicort 160/4.5 Mcg Inh) 2 puff INH BID BONNY Ceftriaxone Sodium 1,000 mg/ (Sodium Chloride) 100 mls @ 200 mls/hr IV.SIG ONCE ONE Stop: 04/14/18 22:08 Azithromycin 500 mg/ Sodium (Chloride) 250 mls @ 250 mls/hr IV.SIG ONCE ONE Stop: 04/14/18 22:38 Azithromycin 500 mg/ Sodium (Chloride) 250 mls @ 250 mls/hr IV.SIG Q24H BONNY Allergies Allergy/AdvReac Type Severity Reaction Status Date / Time penicillin G Allergy Severe Swelling Verified 04/14/18 18:48 Sulfa (Sulfonamide Allergy Severe Itching Verified 04/14/18 18:48 Antibiotics) *MDRO Multi-Drug Resistant AdvReac Unknown Itching, Uncoded 04/14/18 18:48 Organism Localized Home Medications Medication Instructions Recorded Confirmed Type RX: gabapentin [Neurontin] 300 mg PO TID 03/12/18 04/14/18 History RX: insulin aspart U-100 [Novolog 30 unit SUB-Q TID 03/12/18 04/14/18 History U-100 Insulin aspart] RX: insulin glargine [Lantus U-100 54 unit SUB-Q DAILY 03/12/18 04/14/18 History Insulin] RX: umeclidinium-vilanterol [Anoro 1 inh INHALATION Q24H 03/12/18 04/14/18 History Ellipta] Exam Vital signs: Vital Signs 04/14/18 18:48 04/14/18 19:45 04/14/18 20:34 Temperature 97.8 F Pulse Rate 90 77 Respiratory Rate 20 20 Blood Pressure 180/102 H 172/89 H Pulse Oximetry 94 L 95 94 L Intake & Output 04/14/18 04/14/18 04/15/18 06:59 18:59 06:59 Weight 95.254 kg Narrative: PE: GENERAL: Middle-aged white female in mild distress due to pain in right leg. HEENT: PERRLA, EOMI. No scleral icterus or conjunctival pallor. No lid lag or facial droop. CARDIOVASCULAR: Regular rate and rhythm. No obvious murmurs to auscultation. No chest tenderness to palpation. RESPIRATORY: No obvious rhonchi or wheezing. Clear to auscultation. Breath sounds equal bilaterally. GASTROINTESTINAL: Abdomen soft, non-tender, nondistended. BS normal. MUSCULOSKELETAL: Extremities without clubbing, cyanosis, or edema. No obvious deformities. NEUROLOGICAL: Awake, alert and oriented x4. No focal neurologic deficits. Moving both upper and lower extremities spontaneously. Results - Labs CBC & Chem 7: 04/14/18 19:40 04/14/18 19:40 Labs: Short CBC 04/14/18 Range/Units 19:40 WBC 8.8 (4.0-11.0) th/mm3 Hgb 14.4 (11.6-15.3) gm/dL Hct 43.8 (35.0-46.0) % Plt Count 270 (150-450) th/mm3 BMP 04/14/18 19:40 Sodium 137 Potassium 3.5 Chloride 95 L Carbon Dioxide 33.1 H BUN 12 Creatinine 1.05 H Calcium 8.5 Cardiac Enzymes 04/14/18 Range/Units 19:40 Troponin I Less than 0.02 L (0.02-0.05) ng/mL Liver Function 04/14/18 Range/Units 19:40 Total Bilirubin 0.3 (0.2-1.0) mg/dL AST 15 (15-37) U/L ALT 16 (10-53) U/L Alkaline Phosphatase 89 (45-117) U/L Albumin 2.6 L (3.4-5.0) g/dL - Imaging Impressions Chest X-Ray 04/14/18 19:03 CONCLUSION: Mild bilateral mid lung atelectasis. No other evidence of acute cardiopulmonary process. Chest CTA 04/14/18 19:04 CONCLUSION: 1. Bilateral subsegmental and subsegmental pulmonary emboli predominantly in the lower lobes. 2. Left lower lobe consolidating airspace disease with parapneumonic effusion. 3. Minimal atelectasis left base. Caprini VTE Risk Assessment Caprini VTE Risk Assessment: Moderate/High Risk (score >= 2) Caprini Risk Assessment Model: Point Value = 1 Point Value = 2 Point Value = 3 Point Value = 5 Age 41-60 Minor surgery BMI > 25 kg/m2 Swollen legs Varicose veins or History of unexplained or recurrent spontaneous Oral contraceptives or hormone replacement Sepsis (< 1 month) Serious lung disease, including pneumonia (< 1 month) Abnormal pulmonary function Acute myocardial infarction Congestive heart failure (< 1 month) History of inflammatory bowel disease Medical patient at bed rest Age 61-74 Arthroscopic surgery Major open surgery (> 45 min) Laparoscopic surgery (> 45 min) Malignancy Confined to bed (> 72 hours) Immobilizing plaster cast Central venous access Age >= 75 History of VTE Family history of VTE Factor V Leiden Prothrombin [id number] Lupus anticoagulant Anticardiolipin antibodies Elevated serum homocysteine Heparin-induced thrombocytopenia Other congenital or acquired thrombophilia Stroke (< 1 month) Elective arthroplasty Hip, pelvis, or leg fracture Acute spinal cord injury (< 1 month) Prophylaxis Regimen: Total Risk Factor Score Risk Level Prophylaxis Regimen 0-1 Low Early ambulation 2 Moderate Order ONE of the following: *Sequential Compression Device (SCD) *Heparin 5000 units SQ BID 3-4 Higher Order ONE of the following medications: *Heparin 5000 units SQ TID *Enoxaparin/Lovenox 40 mg SQ daily (WT < 150 kg, CrCl > 30 mL/min) *Enoxaparin/Lovenox 30 mg SQ daily (WT < 150 kg, CrCl > 10-29 mL/min) *Enoxaparin/Lovenox 30 mg SQ BID (WT < 150 kg, CrCl > 30 mL/min) AND/OR *Sequential Compression Device (SCD) 5 or more Highest Order ONE of the following medications: *Heparin 5000 units SQ TID (Preferred with Epidurals) *Enoxaparin/Lovenox 40 mg SQ daily (WT < 150 kg, CrCl > 30 mL/min) *Enoxaparin/Lovenox 30 mg SQ daily (WT < 150 kg, CrCl > 10-29 mL/min) *Enoxaparin/Lovenox 30 mg SQ BID (WT < 150 kg, CrCl > 30 mL/min) AND *Sequential Compression Device (SCD) Assessment and Plan - Assessment (1) Chest pain Code(s): R07.9 - Chest pain, unspecified Status: Acute (2) PE (pulmonary thromboembolism) Code(s): I26.99 - Other pulmonary embolism without acute cor pulmonale Status : Acute (3) COPD (chronic obstructive pulmonary disease) Code(s): J44.9 - Chronic obstructive pulmonary disease, unspecified Status: Acute (4) PNA (pneumonia) Code(s): J18.9 - Pneumonia, unspecified organism Status: Acute (5) Diabetes Code(s): E11.9 - Type 2 diabetes mellitus without complications Status: Acute - Plan A/P: 1. Chest Pain: likely secondary to PE, however r/o ACS, initial trop negative , check serial cardiac enzymes, check Echo to eval for cardiac strain. Cardio consult as needed. 2. PE: seen in ER on 03/27/18 for RLE DVT, on Xarelto, now w/ SOB/Chest Pain, CTA Pulm w/ bilateral subsegmental PE, images reviewed. DuoNeb, Symbicort, monitor O2, Echo/cardiac enzymes as above. Start Lovenox 100mg bid, consult Hematology for recommendations regarding anticoagulation. 3. PNA: CTA Pulm w/ LLL infiltrate, s/p Rocephin/Zithro, will continue w/ IV Abx, DuoNeb prn. 4. COPD: Chronic Respiratory Failure w/ Acute Exacerbation, Moderate. DuoNeb prn, Solu-Medrol, Symbicort. Monitor O2 5. DM: Sliding scale w/ Accu-cheks. 6. DVT Prophylaxis: Lovenox 7. Social work for d/c planning as needed 8. Case discussed w/ ER physician at length, labs/records/imaging reviewed by me
[2018-04-14] MEDS: Enoxaparin Inj 100 MG/ML Syringe SQ SCH (23:36)
[2018-04-15] MEDS: Budesonide-Formoterol 160/4.5 MCG 6 GM Inhaler INH SCH ×3 (00:15→20:30)
[2018-04-15] MEDS: MethylPREDNISolone Sod Succinate Inj 40 MG/ML Vial IV.PUSH SCH ×4 (00:23→17:27)
[2018-04-15] MEDS: Morphine Inj 4 MG/ML Vial IV.PUSH PRN ×2 (03:23→20:09)
[2018-04-15] MEDS ORDERED: hydrALAZINE 50 MG Tablet PO ONE (04:44)
[2018-04-15] MEDS ORDERED: Metoprolol Inj 5 MG/5 ML Vial IV.PUSH ONE (04:46)
[2018-04-15 07:28] LABS: Baso % (Auto) 0.4 % (0.0-2.0); Eos % (Auto) 0.3 % (0.0-4.0); Hematocrit 44.5 % (35.0-46.0); Hemoglobin 14.6 gm/dL (11.6-15.3); Lymph # (Auto) 0.7 th/mm3 (1.0-4.8); Lymph % (Auto) 6.4 % (9.0-44.0); Mean Corpuscular HGB Conc 32.8 % (32.0-36.0); Mean Corpuscular Hemoglobin 28.1 pg (27.0-34.0); Mean Corpuscular Volume 85.6 fL (80.0-100.0); Mean Platelet Volume 9.1 fL (7.0-11.0); Mono # (Auto) 0.1 th/mm3 (0.0-0.9); Mono % (Auto) 0.8 % (0.0-8.0); Neut # (Auto) 10.3 th/mm3 (1.8-7.7); Neut % (Auto) 92.1 % (16.0-70.0); Platelet Count 283 th/mm3 (150-450); Red Cell Distribution Width 15.3 % (11.6-17.2); White Blood Count 11.2 th/mm3 (4.0-11.0)
[2018-04-15 08:31] LABS: Alanine Aminotransferase 15 U/L (10-53); Albumin 2.8 g/dL (3.4-5.0); Alkaline Phosphatase 94 U/L (45-117); Anion Gap 10 meq/L (5-15); Aspartate Aminotransferase 12 U/L (15-37); Blood Urea Nitrogen 15 mg/dL (7-18); Calcium 8.5 mg/dL (8.5-10.1); Carbon Dioxide 31.2 meq/L (21.0-32.0); Chloride 92 meq/L (98-107); Glomerular Filtration Rate 56 mL/min (>89); Glucose,Random 439 mg/dL (74-106); Sodium 133 meq/L (136-145); Total Protein 7.9 g/dL (6.4-8.2)
[2018-04-15] MEDS: Enoxaparin Inj 100 MG/ML Syringe SQ SCH ×2 (08:45→20:09)
[2018-04-15] MEDS: Insulin NovoLOG Aspart Correctional Sugar Inj SQ SCH ×4 (08:46→20:29)
[2018-04-15] MEDS ORDERED: INSULIN GLARGINE 54 UNIT SQ SCH (09:00)
[2018-04-15] MEDS: amLODIPine 10 MG Tablet PO SCH (09:28)
[2018-04-15] MEDS: hydrALAZINE 25 MG Tablet PO PRN (09:28)
[2018-04-15] MEDS: Insulin Detemir Inj 1,000 UNIT/10 ML Vial SQ SCH (09:29)
[2018-04-15] MEDS: Senna/Docusate Sodium 8.6/50 MG Tablet PO SCH ×2 (09:30→20:08)
--- NOTE | 2018-04-15 12:34 | P.PN ---
Subjective Interval history: Follow-up bilateral PE/COPD exacerbation/pneumonia April 15, 2018-patient seen and examined, complains of shortness of breath and also reports chest pain. Currently afebrile. Physical Exam Vital signs: Vital Signs 04/14/18 18:48 04/14/18 19:45 04/14/18 20:34 Temperature 97.8 F Pulse Rate 90 77 Respiratory Rate 20 20 Blood Pressure 180/102 H 172/89 H Pulse Oximetry 94 L 95 94 L 04/14/18 22:48 04/14/18 23:42 04/15/18 03:07 Temperature Pulse Rate 77 76 Respiratory Rate 20 20 Blood Pressure 207/98 H Pulse Oximetry 97 04/15/18 03:27 04/15/18 04:42 04/15/18 04:47 Temperature Pulse Rate 74 76 Respiratory Rate 17 20 20 Blood Pressure 194/92 H 211/124 H Pulse Oximetry 96 96 04/15/18 05:37 04/15/18 06:32 04/15/18 07:46 Temperature Pulse Rate 78 68 68 Respiratory Rate 20 19 19 Blood Pressure 163/85 H 164/87 H 152/83 H Pulse Oximetry 97 96 Intake & Output 04/14/18 04/15/18 04/15/18 18:59 06:59 18:59 Intake Total 792 / 792 Balance 792 / 792 Weight 95.254 kg Intake: IV 350 / 350 Rocephin Inj 1,000 MG In NS Inj 100 / 100 100 ML @ 200 mls/hr IV.SIG ONCE ONE Rx#:[id number] Oral 442 / 442 Narrative: GENERAL: sick looking like elderly female in mild distress SKIN: Warm and dry. HEAD: Normocephalic. EYES: No scleral icterus. No injection or drainage. NECK: Supple, trachea midline. No JVD or lymphadenopathy. CARDIOVASCULAR: Regular rate and rhythm without murmurs, gallops, or rubs. RESPIRATORY: Breath sounds decrease bilaterally. No accessory muscle use. GASTROINTESTINAL: Abdomen soft, non-tender, nondistended. MUSCULOSKELETAL: No cyanosis, or edema. BACK: Nontender without obvious deformity. No CVA tenderness. Results - Labs CBC & Chem 7: 04/15/18 06:00 04/15/18 06:00 Laboratory Results - last 24 hr 04/14/18 04/14/18 04/14/18 19:40 19:40 19:40 WBC 8.8 RBC 5.16 Hgb 14.4 Hct 43.8 MCV 84.7 MCH 27.9 MCHC 33.0 RDW 15.7 Plt Count 270 MPV 9.1 Neut % (Auto) 64.8 Lymph % (Auto) 25.8 [place] % (Auto) 5.6 Eos % (Auto) 3.1 Baso % (Auto) 0.7 Neut # (Auto) 5.7 Lymph # (Auto) 2.3 [place] # (Auto) 0.5 Eos # (Auto) 0.3 Baso # (Auto) 0.1 WBC Differential . Differential Comment Auto diff final PT 10.3 INR 1.0 APTT 22.6 L Sodium 137 Potassium 3.5 Chloride 95 L Carbon Dioxide 33.1 H Anion Gap 9 BUN 12 Creatinine 1.05 H Estimated GFR 53 L POC Glucose Random Glucose 345 H Calcium 8.5 Total Bilirubin 0.3 AST 15 ALT 16 Alkaline Phosphatase 89 Troponin I Less than 0.02 L B-Natriuretic Peptide Total Protein 7.3 Albumin 2.6 L 04/14/18 04/15/18 04/15/18 19:40 00:05 06:00 WBC 11.2 H RBC 5.20 Hgb 14.6 Hct 44.5 MCV 85.6 MCH 28.1 MCHC 32.8 RDW 15.3 Plt Count 283 MPV 9.1 Neut % (Auto) 92.1 H Lymph % (Auto) 6.4 L [place] % (Auto) 0.8 Eos % (Auto) 0.3 Baso % (Auto) 0.4 Neut # (Auto) 10.3 H Lymph # (Auto) 0.7 L [place] # (Auto) 0.1 Eos # (Auto) 0.0 Baso # (Auto) 0.0 WBC Differential . Differential Comment Auto diff final PT INR APTT Sodium Potassium Chloride Carbon Dioxide Anion Gap BUN Creatinine Estimated GFR POC Glucose Random Glucose Calcium Total Bilirubin AST ALT Alkaline Phosphatase Troponin I Less than 0.02 L B-Natriuretic Peptide 92 Total Protein Albumin 04/15/18 04/15/18 04/15/18 06:00 06:00 08:23 WBC RBC Hgb Hct MCV MCH MCHC RDW Plt Count MPV Neut % (Auto) Lymph % (Auto) [place] % (Auto) Eos % (Auto) Baso % (Auto) Neut # (Auto) Lymph # (Auto) [place] # (Auto) Eos # (Auto) Baso # (Auto) WBC Differential Differential Comment PT INR APTT Sodium 133 L Potassium 4.0 Chloride 92 L Carbon Dioxide 31.2 Anion Gap 10 BUN 15 Creatinine 1.01 H Estimated GFR 56 L POC Glucose 435 H Random Glucose 439 H Calcium 8.5 Total Bilirubin 0.4 AST 12 L ALT 15 Alkaline Phosphatase 94 Troponin I Less than 0.02 L B-Natriuretic Peptide Total Protein 7.9 D Albumin 2.8 L 04/15/18 11:14 WBC RBC Hgb Hct MCV MCH MCHC RDW Plt Count MPV Neut % (Auto) Lymph % (Auto) [place] % (Auto) Eos % (Auto) Baso % (Auto) Neut # (Auto) Lymph # (Auto) [place] # (Auto) Eos # (Auto) Baso # (Auto) WBC Differential Differential Comment PT INR APTT Sodium Potassium Chloride Carbon Dioxide Anion Gap BUN Creatinine Estimated GFR POC Glucose 377 H Random Glucose Calcium Total Bilirubin AST ALT Alkaline Phosphatase Troponin I B-Natriuretic Peptide Total Protein Albumin - Imaging Impressions Chest X-Ray 04/14/18 19:03 CONCLUSION: Mild bilateral mid lung atelectasis. No other evidence of acute cardiopulmonary process. Chest CTA 04/14/18 19:04 CONCLUSION: 1. Bilateral subsegmental and subsegmental pulmonary emboli predominantly in the lower lobes. 2. Left lower lobe consolidating airspace disease with parapneumonic effusion. 3. Minimal atelectasis left base. Assessment and Plan - Assessment (1) Chest pain Code(s): R07.9 - Chest pain, unspecified Status: Acute (2) PE (pulmonary thromboembolism) Code(s): I26.99 - Other pulmonary embolism without acute cor pulmonale Status : Acute (3) COPD (chronic obstructive pulmonary disease) Code(s): J44.9 - Chronic obstructive pulmonary disease, unspecified Status: Acute (4) PNA (pneumonia) Code(s): J18.9 - Pneumonia, unspecified organism Status: Acute (5) Diabetes Code(s): E11.9 - Type 2 diabetes mellitus without complications Status: Acute - Plan 62-year-old female with 1. Chest Pain: likely secondary to PE. ACS ruled out per protocol with serial cardiac enzyme and EKGs. Cardio consult as needed. 2. PE: CTA Pulm w/ bilateral subsegmental PE. Continue with DuoNeb, Symbicort, monitor O2, Echo/cardiac enzymes as above. Currently on Lovenox 100mg bid, pending consultation from hematology for recommendations regarding anticoagulation. 3. PNA: CTA Pulm w/ LLL infiltrate, s/p Rocephin/Zithro, continue w/ IV Abx, DuoNeb prn. 4. COPD: Chronic Respiratory Failure w/ Acute Exacerbation, Moderate. DuoNeb prn, Solu-Medrol, Symbicort. Monitor O2 5. DM: Sliding scale w/ Accu-cheks. Resume outpatient medications 6. Hypertension Resume outpatient medications and start hydralazine as needed 7. DVT Prophylaxis: Lovenox
--- NOTE | 2018-04-15 13:02 | ECG ---
Date Performed: 04/14/2018 Time Performed: 19:16:07 PTAGE: 62 years EKG: Sinus rhythm BORDERLINE RIGHT AXIS DEVIATION BORDERLINE ECG Since the PREVIOUS TRACING , no significant change noted PREVIOUS TRACING 03/11/2018 DOCTOR: Gavin Chowdary Interpretating Date/Time 04/15/2018 13:00:46
--- NOTE | 2018-04-15 13:09 | MB ---
cc: Rubén Wu MD DATE: 04/15/2018 ATTENDING PHYSICIAN: Dr. Corbett. REASON FOR CONSULTATION: Hematology consult to render opinion regarding patient with pulmonary embolism, developed while she was on Xarelto. HISTORY OF PRESENT ILLNESS: The patient is a 62-year-old female who presented to the hospital complaining of increased shortness of breath and chest pain. She was found to have bilateral pulmonary embolism and admitted. The patient was started on Xarelto about 2 weeks ago for right lower extremity DVT. The patient had a right Achilles tendon surgery about 6 months ago. After the surgery, she was not able to walk. On 03/27/2018, she presented to the emergency room with right lower extremity pain and swelling. She was found to have a deep venous thrombosis. She was given a prescription for Xarelto; however, she was not able to get to pharmacy did not start for more than a week. Since she started Xarelto, however, she states that she did not miss any dose. About 4 days after she started Xarelto, she started having increased shortness of breath and pleuritic chest pain progressively getting worse over the last 3 days. She came to the emergency room and found to have bilateral pulmonary embolism; however, she was also found to have possible pneumonia. She fell about 4 days ago where she hit her head and bruised her right knee. She has been having a headache for the last few days. She denies any visual changes. She denies any focal numbness or weakness. She has no nausea, vomiting or abdominal pain. No hematochezia. No dysuria or hematuria. PAST MEDICAL HISTORY: 1. Recent right lower extremity venous thrombosis. 2. Hypertension; 3. COPD, on oxygen. 4. Diabetes mellitus. 5. Peripheral neuropathy. PAST SURGICAL HISTORY: Cholecystectomy, partial hysterectomy, tonsillectomy. FAMILY HISTORY: One brother of colon cancer. She has a son who is healthy. No family history of thromboembolic event. SOCIAL HISTORY: Smoked half a pack a day for 40 years, quit about 4 days ago. Denies any alcohol use. ALLERGIES: MULTIPLE DRUG ALLERGIES DOCUMENTED ON CHART, WHICH WAS REVIEWED. MEDICATIONS: 1. Lovenox. 2. DuoNebs. 3. Amlodipine. 4. Azithromycin. 5. Symbicort. 6. Carvedilol. 7. Ceftriaxone. 8. Insulin. 9. Solu-Medrol. 10. Che-Colace. REVIEW OF SYSTEMS: CONSTITUTIONAL: As above. EYES: Negative. ENT: Negative. CARDIOVASCULAR: As above. RESPIRATORY: As above. GASTROINTESTINAL: Denies any nausea, vomiting, diarrhea, abdominal pain. GENITOURINARY: No dysuria or hematuria. MUSCULOSKELETAL: As above. ENDOCRINE: Negative. DERMATOLOGY: Negative. PSYCHIATRIC: Negative. NEUROLOGIC: As above. HEMATOLOGIC: As above. PHYSICAL EXAMINATION: VITAL SIGNS: Temperature 97.8, blood pressure 152/83, O2 saturation 96% on 2 liters nasal cannula. GENERAL: She is alert and oriented x3, no acute distress. HEENT: Atraumatic, normocephalic. Pupils are equal, round, reactive to light. Extraocular muscles are intact. No scleral icterus. Oropharynx dry mucosa. NECK: No thyromegaly. No palpable mass. LYMPHATIC: No palpable cervical, clavicular, axillary or inguinal lymph nodes. HEART: Regular S1, S2. No murmur. LUNGS: Clear to auscultation bilaterally. ABDOMEN: Soft, nontender. No palpable liver or spleen. EXTREMITIES: No cyanosis. No clubbing. Edema, bilateral lower extremity, more prominent on the right side. Mild right calf tenderness. No erythema noted. SKIN: No rash or petechiae. NEUROLOGIC: Nonfocal. LABORATORY DATA: WBC 11.2, hemoglobin 14.6, platelet count 283. Creatinine 1.01. ASSESSMENT AND PLAN: 1. Right lower extremity deep venous thrombosis with bilateral pulmonary embolism. The thromboembolic event appeared to be provoked by immobility. She had a right Achilles tendon surgery about 6 months ago. She was immobile for a while. She came to the emergency room on 03/27/2018 with right lower extremity swelling and tenderness. She was found to have a right lower extremity deep venous thrombosis. The patient was given Xarelto; however, she did not warp picker the prescription for more than a week. About 4 days after she started taking Xarelto, she developed worsening shortness of breath and pleuritic chest pain. Symptoms progressively getting worse. She came to the emergency room and a CT angiogram showed bilateral pulmonary embolism, mostly in the lower lobes. There was also left lower lobe consolidation and airspace disease with a parapneumonic effusion. She appeared to have pneumonia as well. It is unclear if her symptom of worsening shortness of breath and pleuritic chest pain is due to the pneumonia or the pulmonary embolism, but I think it is a combination of both. I suspect she may have developed a pulmonary embolism when she did not start the Xarelto immediately after diagnosis of DVT. She likely develop worsening symptoms when she developed the pneumonia. It is difficult to figure out whether she had failed Xarelto at this time. She was started on Lovenox during this admission. I think the best thing to do at this time, is to switch her anticoagulation. We discussed the option of trying Coumadin versus other novel oral anticoagulant like Pradaxa, which has a different mechanism of action as Xarelto. We discussed the pros and cons of each. The patient stated that she has no primary doctor and it is difficult for her to go to clinic to check labs. She would rather try Pradaxa for now. As such, I recommend switching her to Pradaxa after another day of Lovenox. She will need to be monitored closely for progression of blood clots. 2. Head trauma. She fell about 4 days ago, she hit her right knee and her head. She has been having headache for the last 3 days. She denies any focal neurologic deficit or visual changes. Given that she is on anticoagulation, I would get a CT of the head to rule out a bleed. 3. Chronic obstructive pulmonary disease, on oxygen. 4. Pneumonia noted on CT scan. She was started on antibiotics. 5. Hypertension. 6. Diabetes mellitus. 7. Peripheral neuropathy. RECOMMENDATIONS: 1. Extensive discussion with the patient as above. 2. Get CT of the head to rule out a bleed. 3. Continue Lovenox for now. If the CT did not show any bleed, can switch her to Pradaxa tomorrow. Recommend monitor closely for progression of clot. Thank you, Dr. Corbett, for asking me to see this patient. MD YESSY Dixon/ , 10:39 AM , 10:58 AM MIRTHA
[2018-04-15] MEDS: Azithromycin Inj 500 MG in Sodium Chlor 0.9% Inj 250 ML IV.SIG SCH (20:08)
[2018-04-16] MEDS: MethylPREDNISolone Sod Succinate Inj 40 MG/ML Vial IV.PUSH SCH ×3 (00:11→21:40)
[2018-04-16 06:47] LABS: Baso % (Auto) 0.1 % (0.0-2.0); Hematocrit 45.1 % (35.0-46.0); Hemoglobin 15.3 gm/dL (11.6-15.3); Lymph # (Auto) 1.2 th/mm3 (1.0-4.8); Lymph % (Auto) 7.3 % (9.0-44.0); Mean Corpuscular Hemoglobin 28.1 pg (27.0-34.0); Mean Corpuscular Volume 82.6 fL (80.0-100.0); Mean Platelet Volume 9.4 fL (7.0-11.0); Mono # (Auto) 0.3 th/mm3 (0.0-0.9); Neut # (Auto) 15.4 th/mm3 (1.8-7.7); Neut % (Auto) 90.6 % (16.0-70.0); Platelet Count 316 th/mm3 (150-450); Red Blood Count 5.46 mil/mm3 (4.00-5.30); Red Cell Distribution Width 15.5 % (11.6-17.2)
[2018-04-16 07:20] LABS: Alanine Aminotransferase 13 U/L (10-53); Albumin 2.9 g/dL (3.4-5.0); Alkaline Phosphatase 86 U/L (45-117); Anion Gap 9 meq/L (5-15); Aspartate Aminotransferase 11 U/L (15-37); Blood Urea Nitrogen 18 mg/dL (7-18); Calcium 9.3 mg/dL (8.5-10.1); Carbon Dioxide 34.7 meq/L (21.0-32.0); Chloride 89 meq/L (98-107); Glomerular Filtration Rate 70 mL/min (>89); Glucose,Random 280 mg/dL (74-106); Potassium 3.5 meq/L (3.5-5.1); Sodium 133 meq/L (136-145); Total Protein 8.3 g/dL (6.4-8.2)
[2018-04-16] MEDS: Morphine Inj 4 MG/ML Vial IV.PUSH PRN ×4 (07:50→20:07)
[2018-04-16] MEDS: Insulin Detemir Inj 1,000 UNIT/10 ML Vial SQ SCH (08:40)
[2018-04-16] MEDS: amLODIPine 10 MG Tablet PO SCH (08:40)
[2018-04-16] MEDS: Senna/Docusate Sodium 8.6/50 MG Tablet PO SCH ×2 (08:40→21:40)
[2018-04-16] MEDS: Enoxaparin Inj 100 MG/ML Syringe SQ SCH ×2 (08:40→21:42)
[2018-04-16] MEDS: Insulin NovoLOG Aspart Correctional Sugar Inj SQ SCH ×3 (08:41→17:30)
[2018-04-16] MEDS: Budesonide-Formoterol 160/4.5 MCG 6 GM Inhaler INH SCH ×2 (08:42→21:42)
--- NOTE | 2018-04-16 11:07 | P.PN ---
Subjective Interval history: Follow-up bilateral PE/COPD exacerbation/pneumonia April 15, 2018-patient seen and examined, complains of shortness of breath and also reports chest pain. Currently afebrile. April 16, 2018-patient seen and examined, states she is not feeling well, still with some shortness of breath as well as chest pain. Also complaining of leg pains Physical Exam Vital signs: Vital Signs 04/15/18 11:00 04/15/18 16:00 04/15/18 16:39 Temperature 98.2 F 98.0 F Pulse Rate 67 69 Respiratory Rate 24 22 Blood Pressure 180/100 H 145/88 H Pulse Oximetry 96 97 95 04/15/18 19:28 04/15/18 20:00 04/15/18 20:10 Temperature 98.0 F Pulse Rate 71 80 Respiratory Rate 20 26 H 26 H Blood Pressure 154/95 H Pulse Oximetry 95 93 L 04/15/18 23:00 04/16/18 00:00 04/16/18 00:20 Temperature 98.0 F Pulse Rate 80 80 Respiratory Rate 20 20 Blood Pressure 165/87 H Pulse Oximetry 94 L 04/16/18 03:44 04/16/18 04:00 04/16/18 08:00 Temperature 98.0 F 97.7 F Pulse Rate 71 82 Respiratory Rate 20 20 22 Blood Pressure 153/96 H 169/125 H Pulse Oximetry 93 L 96 04/16/18 08:32 04/16/18 09:00 04/16/18 10:08 Temperature Pulse Rate 76 Respiratory Rate 22 Blood Pressure Pulse Oximetry 96 Intake & Output 04/15/18 04/16/18 04/16/18 18:59 06:59 18:59 Intake Total 1300 / 1300 360 / 360 350 / 350 Output Total 1200 / 1200 800 / 800 Balance 100 / 100 -440 / -440 350 / 350 Weight 95.24 kg 95 kg Intake: IV 0 / 0 350 / 350 Azithromycin Inj 500 MG In NS 0 / 0 250 / 250 Inj 250 ML @ 250 mls/hr IV.SIG Q24H BONNY Rx#:[id number] Rocephin Inj 1,000 MG In NS Inj 0 / 0 100 / 100 100 ML @ 200 mls/hr IV.SIG Q24H BONNY Rx#:[id number] Oral 1300 / 1300 360 / 360 Output: Urine 1200 / 1200 800 / 800 Stool 0 / 0 Other: Weight On Admission 95.254 kg Narrative: GENERAL: NAD SKIN: Warm and dry. HEAD: Normocephalic. EYES: No scleral icterus. No injection or drainage. NECK: Supple, trachea midline. No JVD or lymphadenopathy. CARDIOVASCULAR: Regular rate and rhythm without murmurs, gallops, or rubs. RESPIRATORY: Breath sounds decrease bilaterally. No accessory muscle use. GASTROINTESTINAL: Abdomen soft, non-tender, nondistended. MUSCULOSKELETAL: No cyanosis, or edema. BACK: Nontender without obvious deformity. No CVA tenderness. Results - Labs CBC & Chem 7: 04/16/18 04:47 04/16/18 04:47 Laboratory Results - last 24 hr 04/15/18 04/15/18 04/15/18 11:14 17:01 20:05 WBC RBC Hgb Hct MCV MCH MCHC RDW Plt Count MPV Prelim Diff (Auto) Neut % (Auto) Lymph % (Auto) [place] % (Auto) Eos % (Auto) Baso % (Auto) Neut # (Auto) Lymph # (Auto) [place] # (Auto) Eos # (Auto) Baso # (Auto) WBC Differential Differential Comment Sodium Potassium Chloride Carbon Dioxide Anion Gap BUN Creatinine Estimated GFR POC Glucose 377 H 282 H 174 H Random Glucose Calcium Total Bilirubin AST ALT Alkaline Phosphatase Total Protein Albumin 04/16/18 04/16/18 04/16/18 04:47 04:47 08:27 WBC 17.0 H D RBC 5.46 H Hgb 15.3 Hct 45.1 MCV 82.6 MCH 28.1 MCHC 34.0 RDW 15.5 Plt Count 316 MPV 9.4 Prelim Diff (Auto) Slide review pending Neut % (Auto) 90.6 H Lymph % (Auto) 7.3 L [place] % (Auto) 2.0 Eos % (Auto) 0.0 Baso % (Auto) 0.1 Neut # (Auto) 15.4 H Lymph # (Auto) 1.2 [place] # (Auto) 0.3 Eos # (Auto) 0.0 Baso # (Auto) 0.0 WBC Differential . Differential Comment . Sodium 133 L Potassium 3.5 Chloride 89 L Carbon Dioxide 34.7 H Anion Gap 9 BUN 18 Creatinine 0.83 Estimated GFR 70 L POC Glucose 334 H Random Glucose 280 H D Calcium 9.3 D Total Bilirubin 0.3 AST 11 L ALT 13 Alkaline Phosphatase 86 Total Protein 8.3 H Albumin 2.9 L Assessment and Plan - Assessment (1) Chest pain Code(s): R07.9 - Chest pain, unspecified Status: Acute (2) PE (pulmonary thromboembolism) Code(s): I26.99 - Other pulmonary embolism without acute cor pulmonale Status : Acute (3) COPD (chronic obstructive pulmonary disease) Code(s): J44.9 - Chronic obstructive pulmonary disease, unspecified Status: Acute (4) PNA (pneumonia) Code(s): J18.9 - Pneumonia, unspecified organism Status: Acute (5) Diabetes Code(s): E11.9 - Type 2 diabetes mellitus without complications Status: Acute - Plan 62-year-old female with 1. Chest Pain: likely secondary to PE. ACS ruled out per protocol with serial cardiac enzyme and EKGs. Cardio consult as needed. 2. PE: CTA Pulm w/ bilateral subsegmental PE. Continue with DuoNeb, Symbicort, monitor O2, Echo/cardiac enzymes as above. Currently on Lovenox 100mg bid, pending head CT to rule out bleed. If no bleed will transition to Pradaxa twice a day. Appreciate input from hematology Check lower extremity Doppler 3. PNA: CTA Pulm w/ LLL infiltrate, s/p Rocephin/Zithro, continue w/ IV Abx, DuoNeb prn. 4. COPD: Chronic Respiratory Failure w/ Acute Exacerbation, Moderate. DuoNeb prn, Solu-Medrol, Symbicort. 5. DM: Sliding scale w/ Accu-cheks. Continue outpatient medications 6. Hypertension-labile Increase Coreg to 6.25 mg p.o. twice daily and continue with hydralazine as needed 7. DVT Prophylaxis: Lovenox
--- NOTE | 2018-04-16 11:17 | P.PNONC ---
Subjective Interval history: Afebrile, patient lying in bed, tachypneic, her NC was on her forehead, after this was adjusted she reported her breathing to be improved. She is complaining of pain in her RLE, it was improved with IV morphine earlier today, however the pain has returned. Objective Vital Signs/Intake & Output: Vital Signs 04/15/18 16:00 04/15/18 16:39 04/15/18 19:28 Temperature 98.0 F Pulse Rate 69 71 Respiratory Rate 22 20 Blood Pressure 145/88 H Pulse Oximetry 97 95 95 04/15/18 20:00 04/15/18 20:10 04/15/18 23:00 Temperature 98.0 F Pulse Rate 80 80 Respiratory Rate 26 H 26 H Blood Pressure 154/95 H Pulse Oximetry 93 L 04/16/18 00:00 04/16/18 00:20 04/16/18 03:44 Temperature 98.0 F Pulse Rate 80 Respiratory Rate 20 20 20 Blood Pressure 165/87 H Pulse Oximetry 94 L 04/16/18 04:00 04/16/18 08:00 04/16/18 08:32 Temperature 98.0 F 97.7 F Pulse Rate 71 82 Respiratory Rate 20 22 22 Blood Pressure 153/96 H 169/125 H Pulse Oximetry 93 L 96 04/16/18 09:00 04/16/18 10:08 Temperature Pulse Rate 76 Respiratory Rate Blood Pressure Pulse Oximetry 96 Intake & Output 04/15/18 04/16/18 04/16/18 18:59 06:59 18:59 Intake Total 1300 / 1300 360 / 360 350 / 350 Output Total 1200 / 1200 800 / 800 Balance 100 / 100 -440 / -440 350 / 350 Weight 95.24 kg 95 kg Intake: IV 0 / 0 350 / 350 Azithromycin Inj 500 MG In NS 0 / 0 250 / 250 Inj 250 ML @ 250 mls/hr IV.SIG Q24H [facility] Rx#:[id number] Rocephin Inj 1,000 MG In NS Inj 0 / 0 100 / 100 100 ML @ 200 mls/hr IV.SIG Q24H BONNY Rx#:[id number] Oral 1300 / 1300 360 / 360 Output: Urine 1200 / 1200 800 / 800 Stool 0 / 0 Other: Weight On Admission 95.254 kg Result Diagrams: 04/16/18 04:47 08/27/18 04:47 Laboratory Results: Laboratory Results - last 24 hr 04/15/18 04/15/18 04/15/18 11:14 17:01 20:05 WBC RBC Hgb Hct MCV MCH MCHC RDW Plt Count MPV Prelim Diff (Auto) Neut % (Auto) Lymph % (Auto) [place] % (Auto) Eos % (Auto) Baso % (Auto) Neut # (Auto) Lymph # (Auto) [place] # (Auto) Eos # (Auto) Baso # (Auto) WBC Differential Differential Comment Sodium Potassium Chloride Carbon Dioxide Anion Gap BUN Creatinine Estimated GFR POC Glucose 377 H 282 H 174 H Random Glucose Calcium Total Bilirubin AST ALT Alkaline Phosphatase Total Protein Albumin 04/16/18 04/16/18 04/16/18 04:47 04:47 08:27 WBC 17.0 H D RBC 5.46 H Hgb 15.3 Hct 45.1 MCV 82.6 MCH 28.1 MCHC 34.0 RDW 15.5 Plt Count 316 MPV 9.4 Prelim Diff (Auto) Slide review pending Neut % (Auto) 90.6 H Lymph % (Auto) 7.3 L [place] % (Auto) 2.0 Eos % (Auto) 0.0 Baso % (Auto) 0.1 Neut # (Auto) 15.4 H Lymph # (Auto) 1.2 [place] # (Auto) 0.3 Eos # (Auto) 0.0 Baso # (Auto) 0.0 WBC Differential . Differential Comment . Sodium 133 L Potassium 3.5 Chloride 89 L Carbon Dioxide 34.7 H Anion Gap 9 BUN 18 Creatinine 0.83 Estimated GFR 70 L POC Glucose 334 H Random Glucose 280 H D Calcium 9.3 D Total Bilirubin 0.3 AST 11 L ALT 13 Alkaline Phosphatase 86 Total Protein 8.3 H Albumin 2.9 L Medications: Active Medications Generic Name Dose Route Start Last Admin Trade Name Freq PRN Reason Stop Dose Admin Hydrocodone Bitart/Acetaminophen 1 tab 04/14/18 21:44 04/16/18 03:44 [place] 10/325 PO 1 tab Q4H PRN Administration PAIN 6-10 Hydrocodone Bitart/Acetaminophen 1 tab 04/15/18 12:26 04/15/18 18:50 [place] 7.5/325 PO 1 tab Q4H PRN Administration PAIN 6-10;IF UNABLE TO TAKE PO Albuterol 1 ampul 04/14/18 19:03 04/15/18 19:24 Duoneb Neb (Prn) NEB 1 ampul Q15M PRN Administration WHEEZING Amlodipine Besylate 10 mg 04/15/18 09:00 04/16/18 08:40 Norvasc PO 10 mg DAILY BONNY Administration Budesonide/Formoterol Fumarate 2 puff 04/14/18 22:00 04/16/18 08:42 Symbicort 160/4.5 Mcg Inh INH 2 puff BID BONNY Administration Enoxaparin Sodium 100 mg 04/14/18 22:15 04/16/18 08:40 Lovenox Inj SQ 100 mg Q12HR BONNY Administration Hydralazine HCl 25 mg 04/15/18 08:56 04/15/18 09:28 Apresoline PO 25 mg TID PRN Administration SBP>160, DBP>90 Azithromycin 500 mg/ Sodium 250 mls @ 250 mls/hr 04/15/18 21:00 04/16/18 07: 25 Chloride IV.SIG Infused Q24H BONNY Infusion Ceftriaxone Sodium 1,000 mg/ 100 mls @ 200 mls/hr 04/15/18 21:00 04/16/18 07: 26 Sodium Chloride IV.SIG Infused Q24H BONNY Infusion Insulin Aspart 0 unit 04/15/18 08:00 04/16/18 08:41 Novolog Insulin Correctional Sugar Inj SQ 7 unit ACHS BONNY Administration Protocol Insulin Aspart 30 units 04/15/18 09:00 04/16/18 08:42 Novolog Inj SQ 30 units TID BONNY Administration Insulin Detemir 54 unit 04/15/18 09:00 04/16/18 08:40 Levemir Inj SQ 54 unit DAILY BONNY Administration Morphine Sulfate 2 mg 04/14/18 23:15 04/16/18 07:50 Morphine Inj IV.PUSH 2 mg Q3H PRN Administration BREAKTHROUGH PAIN Senna/Docusate Sodium 1 tab 04/15/18 09:00 04/16/18 08:40 Che-Colace PO 1 tab BID BONNY Administration Objective Remarks: GENERAL: Chronically ill-appearing obese female patient, + mild distress. SKIN: + flush, warm and dry. HEAD: Normocephalic. EYES: No scleral icterus. No injection or drainage. NECK: Supple, trachea midline. CARDIOVASCULAR: distant heart sounds. RESPIRATORY: Posterior Breath sounds diminished left. No accessory muscle use. + tachypneic. O2 via NC @ 4L. GASTROINTESTINAL: Abdomen soft, non-tender, nondistended. EXTREMITIES: No cyanosis. slight edema RLE, + right great toe amputation. cap refill < 3sec. MUSCULOSKELETAL: Adequate muscle tone. NEUROLOGICAL: No obvious focal deficit. Awake, alert, and oriented x3. PSYCHIATRIC: Appropriate mood and affect; insight and judgment normal. Assessment/Plan - Plan Ms. Salcido is a pleasant 62-year-old female, with multiple chronic medical conditions. She was diagnosed with DVT approximately 2 weeks ago and was prescribed Xarelto. The patient reported that she was unable to fill the prescription for 1 week. She reported back to the emergency department with increasing shortness of breath and was found to have bilateral pulmonary embolisms and pneumonia. Plan: 1. DVT with bilateral pulmonary embolisms, currently on Lovenox. We will continue the Lovenox and possibly transition to Pradaxa tomorrow, depending on how the patient is doing. 2. Shortness of breath, I have encouraged the patient to keep her nasal cannula in place. Continue to monitor. 3. Pain, continue to monitor and treat accordingly. Monitor for sedation. 4. Pneumonia, on azithromycin. Management per attending. 5. Discussed with RN. 6. CT brain is pending. - Attending Statement The exam, history, and the medical decision-making described in the above note were completed with the assistance of the mid-level provider. I reviewed and agree with the findings presented. I attest that I had a [id number] encounter with the patient on the same day, and personally performed and documented my assessment and findings in the medical record.CP and SOB have improved. RLE soreness improved. Continue lovenox and plan to transition to pradaxa tomorrow. Continue treatment of pneumonia per primary team.
--- NOTE | 2018-04-16 17:29 | US ---
EXAM DATE: 04/16/2018 5:23 PM EDT AGE/SEX: 62 years / Female INDICATIONS: Bilateral leg pain. CLINICAL DATA: This is the patient's initial encounter. Patient reports that signs and symptoms have been present for 3 days and indicates a pain score of 9/10. MEDICAL/SURGICAL HISTORY: Chronic obstructive pulmonary disease. Diabetes. Hypertension. Noc turnal oxygen therapy. Right leg DVT. Xarelto therapy. . [place] [facility] [place]27/2018. . TECHNIQUE: Venous ultrasound of both lower extremities was performed from the inguinal ligament to t he proximal calf. Real-time, color Doppler and spectral tracing, compression and augmentation techni ques were used. FINDINGS: Right Leg: Redemonstration of occlusive thrombus in the distal femoral vein extending to the posteri or tibial vein. The central femoral vein and common femoral vein appear patent. Left Leg: Normal compression of the deep venous system from the inguinal region to the proximal calf . No echogenic clot is seen. Normal response of the venous system to augmentation and respiration. Other: None. CONCLUSION: 1. Persistent occlusive thrombus in the right distal femoral vein extending to the calf. 2. No sonographic evidence for left lower extremity DVT. Electronically signed by: Aly Ureña MD 04/16/2018 5:28 PM EDT
--- NOTE | 2018-04-16 18:45 | CT ---
EXAM DATE: 04/16/2018 6:30 PM EDT AGE/SEX: 62 years / Female INDICATIONS: Trauma, fall. Cephalgia. CLINICAL DATA: This is the patient's initial encounter. Patient reports that signs and symptoms have been present for 1 day and indicates a pain score of 7/10. MEDICAL/SURGICAL HISTORY: Chronic obstructive pulmonary disease. Diabetes. Deep venous thrombosis . None. RADIATION DOSE: 37.70 CTDI (mGy) COMPARISON: [facility] – [place], [place] BRAIN W/O CONTRAST, 07/29/2011. . TECHNIQUE: CT of the head without contrast. Using automated exposure control and adjustment of the mA and/or kV according to patient size, radiation dose was kept as low as reasonably achievable to ob tain optimal diagnostic quality images. DICOM format image data is available electronically for revi ew and comparison. FINDINGS: Cerebrum: The ventricles are normal for age. No evidence of midline shift, mass lesion, hemorrhage or acute infarction. No extraaxial fluid collections are seen. Posterior Fossa: The cerebellum and brainstem are intact. The 4th ventricle is midline. The cerebe llopontine angle is unremarkable. Extracranial: The visualized portion of the orbits is intact. Skull: The calvaria is intact. No evidence of skull fracture. CONCLUSION: 1. No acute intracranial abnormality is seen. . Electronically signed by: Salvador Díaz MD 04/16/2018 6:44 PM EDT
[2018-04-16] MEDS: Carvedilol 6.25 MG Tablet PO SCH (21:40)
[2018-04-16] MEDS: Azithromycin Inj 500 MG in Sodium Chlor 0.9% Inj 250 ML IV.SIG SCH (21:44)
[2018-04-17] MEDS: Insulin NovoLOG Aspart Correctional Sugar Inj SQ SCH ×5 (07:12→20:04)
[2018-04-17] MEDS: MethylPREDNISolone Sod Succinate Inj 40 MG/ML Vial IV.PUSH SCH ×2 (09:12→20:03)
[2018-04-17] MEDS: Senna/Docusate Sodium 8.6/50 MG Tablet PO SCH ×2 (09:12→20:03)
[2018-04-17] MEDS: amLODIPine 10 MG Tablet PO SCH (09:12)
[2018-04-17] MEDS: Carvedilol 6.25 MG Tablet PO SCH ×2 (09:13→20:04)
[2018-04-17] MEDS: Morphine Inj 4 MG/ML Vial IV.PUSH PRN ×4 (09:13→20:04)
[2018-04-17] MEDS: Insulin Detemir Inj 1,000 UNIT/10 ML Vial SQ SCH (09:18)
[2018-04-17] MEDS: Budesonide-Formoterol 160/4.5 MCG 6 GM Inhaler INH SCH ×2 (09:18→20:05)
--- NOTE | 2018-04-17 11:13 | P.PN ---
Subjective Interval history: Follow-up bilateral PE/COPD exacerbation/pneumonia April 15, 2018-patient seen and examined, complains of shortness of breath and also reports chest pain. Currently afebrile. April 16, 2018-patient seen and examined, states she is not feeling well, still with some shortness of breath as well as chest pain. Also complaining of leg pains April 17, 2018-patient seen and examined,still complaining of having a hard time to breath with significant shortness of breath Physical Exam Vital signs: Vital Signs 04/16/18 12:00 04/16/18 16:00 04/16/18 17:37 Temperature 97.9 F 97.8 F Pulse Rate 86 67 Respiratory Rate 22 18 Blood Pressure 157/96 H 150/86 H Pulse Oximetry 95 96 96 04/16/18 20:00 04/16/18 23:00 04/17/18 00:00 Temperature 98.9 F 98.7 F Pulse Rate 84 78 Respiratory Rate 20 18 Blood Pressure 152/99 H 127/81 Pulse Oximetry 99 04/17/18 04:00 04/17/18 08:00 04/17/18 09:00 Temperature 98.2 F 97.5 F L Pulse Rate 66 Respiratory Rate 16 22 Blood Pressure 137/82 156/90 H Pulse Oximetry 94 L 04/17/18 09:58 Temperature Pulse Rate Respiratory Rate 20 Blood Pressure Pulse Oximetry Intake & Output 04/16/18 04/17/18 04/17/18 18:59 06:59 18:59 Intake Total 990 / 990 250 / 250 100 / 100 Output Total 750 / 750 Balance 990 / 990 -500 / -500 100 / 100 Weight 95 kg Intake: IV 350 / 350 250 / 250 100 / 100 Azithromycin Inj 500 MG In NS 250 / 250 250 / 250 Inj 250 ML @ 250 mls/hr IV.SIG Q24H [facility] Rx#:[id number] Rocephin Inj 1,000 MG In NS Inj 100 / 100 100 / 100 100 ML @ 200 mls/hr IV.SIG Q24H BONNY Rx#:[id number] Oral 640 / 640 Output: Urine 750 / 750 Other: # Voids 4 Date of Last Bowel Movement 04/17/18 Narrative: GENERAL: NAD SKIN: Warm and dry. HEAD: Normocephalic. EYES: No scleral icterus. No injection or drainage. NECK: Supple, trachea midline. No JVD or lymphadenopathy. CARDIOVASCULAR: Regular rate and rhythm without murmurs, gallops, or rubs. RESPIRATORY: Breath sounds decrease bilaterally. No accessory muscle use. GASTROINTESTINAL: Abdomen soft, non-tender, nondistended. MUSCULOSKELETAL: No cyanosis, or edema. BACK: Nontender without obvious deformity. No CVA tenderness. Results - Labs CBC & Chem 7: 04/16/18 04:47 04/16/18 04:47 Laboratory Results - last 24 hr 04/16/18 04/16/18 04/16/18 12:44 17:18 22:22 POC Glucose 327 H 150 H 104 04/17/18 08:46 POC Glucose 189 H - Imaging Impressions Head CT 04/16/18 00:00 CONCLUSION: 1. No acute intracranial abnormality is seen. . Venous Doppler Study 04/16/18 00:00 CONCLUSION: 1. Persistent occlusive thrombus in the right distal femoral vein extending to the calf. 2. No sonographic evidence for left lower extremity DVT. - Procedures None Assessment and Plan - Assessment (1) Chest pain Code(s): R07.9 - Chest pain, unspecified Status: Acute (2) PE (pulmonary thromboembolism) Code(s): I26.99 - Other pulmonary embolism without acute cor pulmonale Status : Acute (3) COPD (chronic obstructive pulmonary disease) Code(s): J44.9 - Chronic obstructive pulmonary disease, unspecified Status: Acute (4) PNA (pneumonia) Code(s): J18.9 - Pneumonia, unspecified organism Status: Acute (5) Diabetes Code(s): E11.9 - Type 2 diabetes mellitus without complications Status: Acute - Plan 62-year-old female with 1. Chest Pain: likely secondary to PE. ACS ruled out per protocol with serial cardiac enzyme and EKGs. Cardio consult as needed. 2. PE: CTA Pulm w/ bilateral subsegmental PE. Continue with DuoNeb, Symbicort, monitor O2, Echo/cardiac enzymes as above. d/c Lovenox 100mg bid and start Pradaxa 150mg twice a day 04/17/18. Appreciate input from hematology 3. PNA: CTA Pulm w/ LLL infiltrate, s/p Rocephin/Zithro, continue w/ IV Abx, DuoNeb prn. 4. COPD: Chronic Respiratory Failure w/ Acute Exacerbation, Moderate. DuoNeb prn, Solu-Medrol, Symbicort. 5. DM: Sliding scale w/ Accu-cheks. Continue outpatient medications 6. Hypertension-labile Continue Coreg 6.25 mg p.o. twice daily and continue with hydralazine as needed 7. DVT Prophylaxis: Pradaxa
--- NOTE | 2018-04-17 15:00 | P.PNONC ---
Subjective Interval history: Patient lying in bed, she complains that her "belly aches", she denies any n/v/ d. She is not quite sure when her last bowel movement was. She is still having RLE pain. She reports pain is relieved with IV morphine. No change in breathing status, reporting continued shortness of breath. Objective Vital Signs/Intake & Output: Vital Signs 04/16/18 16:00 04/16/18 17:37 04/16/18 20:00 Temperature 97.8 F 98.9 F Pulse Rate 67 84 Respiratory Rate 18 20 Blood Pressure 150/86 H 152/99 H Pulse Oximetry 96 96 99 04/16/18 23:00 04/17/18 00:00 04/17/18 04:00 Temperature 98.7 F 98.2 F Pulse Rate 78 Respiratory Rate 18 16 Blood Pressure 127/81 137/82 Pulse Oximetry 04/17/18 08:00 04/17/18 09:00 04/17/18 09:58 Temperature 97.5 F L Pulse Rate 66 Respiratory Rate 22 20 Blood Pressure 156/90 H Pulse Oximetry 94 L 04/17/18 12:00 Temperature 97.5 F L Pulse Rate Respiratory Rate 22 Blood Pressure 136/83 Pulse Oximetry 96 Intake & Output 04/16/18 04/17/18 04/17/18 18:59 06:59 18:59 Intake Total 990 / 990 250 / 250 100 / 100 Output Total 750 / 750 Balance 990 / 990 -500 / -500 100 / 100 Weight 95 kg Intake: IV 350 / 350 250 / 250 100 / 100 Azithromycin Inj 500 MG In NS 250 / 250 250 / 250 Inj 250 ML @ 250 mls/hr IV.SIG Q24H BONNY Rx#:[id number] Rocephin Inj 1,000 MG In NS Inj 100 / 100 100 / 100 100 ML @ 200 mls/hr IV.SIG Q24H BONNY Rx#:[id number] Oral 640 / 640 Output: Urine 750 / 750 Other: # Voids 4 Date of Last Bowel Movement 04/17/18 Result Diagrams: 04/16/18 04:47 04/16/18 04:47 Laboratory Results: Laboratory Results - last 24 hr 04/16/18 04/16/18 04/17/18 17:18 22:22 08:46 POC Glucose 150 H 104 189 H 04/17/18 11:38 POC Glucose 304 H Imaging Studies: Impressions Head CT 04/16/18 00:00 CONCLUSION: 1. No acute intracranial abnormality is seen. . Venous Doppler Study 04/16/18 00:00 CONCLUSION: 1. Persistent occlusive thrombus in the right distal femoral vein extending to the calf. 2. No sonographic evidence for left lower extremity DVT. Medications: Active Medications Generic Name Dose Route Start Last Admin Trade Name Freq PRN Reason Stop Dose Admin Hydrocodone Bitart/Acetaminophen 1 tab 04/15/18 12:26 04/17/18 05:55 [place] 7.5/325 PO 1 tab Q4H PRN Administration PAIN 6-10 Amlodipine Besylate 10 mg 04/15/18 09:00 04/17/18 09:12 Norvasc PO 10 mg DAILY BONNY Administration Budesonide/Formoterol Fumarate 2 puff 04/14/18 22:00 04/17/18 09:18 Symbicort 160/4.5 Mcg Inh INH 2 puff BID BONNY Administration Carvedilol 6.25 mg 04/16/18 21:00 04/17/18 09:13 Coreg PO 6.25 mg BID BONNY Administration Dabigatran 150 mg 04/17/18 09:00 04/17/18 09:12 Pradaxa PO 150 mg BID BONNY Administration Hydralazine HCl 25 mg 04/15/18 08:56 04/15/18 09:28 Apresoline PO 25 mg TID PRN Administration SBP>160, DBP>90 Azithromycin 500 mg/ Sodium 250 mls @ 250 mls/hr 04/15/18 21:00 04/17/18 05: 17 Chloride IV.SIG Infused Q24H BONNY Infusion Ceftriaxone Sodium 1,000 mg/ 100 mls @ 200 mls/hr 04/15/18 21:00 04/17/18 07: 14 Sodium Chloride IV.SIG Infused Q24H BONNY Infusion Insulin Aspart 0 unit 04/15/18 08:00 04/17/18 12:20 Novolog Insulin Correctional Sugar Inj SQ 7 unit ACHS BONNY Administration Protocol Insulin Aspart 30 units 04/15/18 09:00 04/17/18 12:20 Novolog Inj SQ 30 units TID BONNY Administration Insulin Detemir 54 unit 04/15/18 09:00 04/17/18 09:18 Levemir Inj SQ 54 unit DAILY BONNY Administration Methylprednisolone Sodium Succinate 20 mg 08/27/18 21:00 04/17/18 09:12 Solumedrol Inj IV.PUSH 20 mg Q12HR BONNY Administration Morphine Sulfate 2 mg 04/14/18 23:15 04/17/18 12:19 Morphine Inj IV.PUSH 2 mg Q3H PRN Administration BREAKTHROUGH PAIN Senna/Docusate Sodium 1 tab 04/15/18 09:00 04/17/18 09:12 Che-Colace PO 1 tab BID BONNY Administration Objective Remarks: GENERAL: Chronically ill-appearing obese female patient. SKIN: Warm and dry. HEAD: Normocephalic. EYES: No scleral icterus. No injection or drainage. NECK: Supple, trachea midline. CARDIOVASCULAR: Distant heart sounds. RESPIRATORY: Bilateral scattered rhonchi. No accessory muscle use. O2 via nasal cannula. GASTROINTESTINAL: Abdomen soft, non-tender, nondistended. EXTREMITIES: No cyanosis or edema.+ Right great toe amputation. MUSCULOSKELETAL: Adequate muscle tone. NEUROLOGICAL: No obvious focal deficit. Awake, alert, and oriented x3. PSYCHIATRIC: Appropriate mood and affect; insight and judgment normal. Assessment/Plan - Plan Ms. Salcido is a pleasant 62-year-old female, with multiple chronic medical conditions. She was diagnosed with DVT approximately 2 weeks ago and was prescribed Xarelto. The patient reported that she was unable to fill the prescription for 1 week. She reported back to the emergency department with increasing shortness of breath and was found to have bilateral pulmonary embolisms and pneumonia. Plan: 1. DVT with bilateral pulmonary embolisms. Now on Pradaxa 150 mg p.o. twice daily. 2. Pain, continue to monitor and treat accordingly. Monitor for sedation. Discussed with RN. 3. Pneumonia, on azithromycin. Management per attending. 4. Bilateral lower extremity venous Doppler showed persistent occlusive thrombus in the right distal femoral vein extending to the calf. No evidence of left lower extremity DVT. 5. CT brain was negative for acute findings. 6. Abdominal discomfort, possibly secondary to pain medications or constipation. Administer as needed medications for constipation if patient does not have a bowel movement today. - Attending Statement The exam, history, and the medical decision-making described in the above note were completed with the assistance of the mid-level provider. I reviewed and agree with the findings presented. I attest that I had a [id number] encounter with the patient on the same day, and personally performed and documented my assessment and findings in the medical record. Patient stated that her shortness of breath and cough have improved. Still has right lower extremity pain. No significant edema noted. She has no bleeding. We will transition her to Pradaxa today.
--- NOTE | 2018-04-17 15:09 | ECHRPT ---
Indication: SHORTNESS OF BREATH CONCLUSIONS The left ventricular systolic function is normal with an estimated ejection fraction in the range of 55-60%. Mild concentric left ventricular hypertrophy. Doppler parameters are consistent with impaired left ventricular relaxtion (grade 1 diastolic dysfun ction). There is mild tricuspid valve regurgitation. BP: / HR: Rhythm: Sinus MEASUREMENTS (Male / Female) Normal Values Technical Quality:Fair 2D ECHO LV Diastolic Diameter PLAX 3.8 cm 4.2 - 5.9 / 3.9 - 5.3 cm LV Systolic Diameter PLAX 3.2 cm IVS Diastolic Thickness 1.3 cm 0.6 - 1.0 / 0.6 - 0.9 cm LVPW Diastolic Thickness 1.3 cm 0.6 - 1.0 / 0.6 - 0.9 cm LV Relative Wall Thickness 0.7 RV Internal Dim ED PLAX 2.7 cm LVOT Diameter 1.6 cm Aortic Root Diameter 2.7 cm LA Systolic Diameter LX 4.4 cm 3.0 - 4.0 / 2.7 - 3.8 cm DOPPLER AV Peak Velocity 125.0 cm/s AV Peak Gradient 6.3 mmHg AV Mean Gradient 3.0 mmHg AV Velocity Time Integral 22.9 cm LVOT Peak Velocity 108.0 cm/s LVOT Peak Gradient 4.7 mmHg LVOT Velocity Time Integral 23.3 cm AV Area Cont Eq vti 2.0 cm AV Area Cont Eq pk 1.7 cm Mitral E Point Velocity 89.8 cm/s Mitral A Point Velocity 120.0 cm/s Mitral E to A Ratio 0.7 LV E' Lateral Velocity 6.2 cm/s Mitral E to LV E' Lateral Ratio 14.4 LV E' Septal Velocity 7.6 cm/s Mitral E to LV E' Septal Ratio 11.8 TR Peak Velocity 303.0 cm/s TR Peak Gradient 36.7 mmHg Right Atrial Pressure 10.0 mmHg Pulmonary Artery Systolic Pressu 46.7 mmHg Right Ventricular Systolic Press 46.7 mmHg PV Peak Velocity 77.5 cm/s PV Peak Gradient 2.4 mmHg FINDINGS LEFT VENTRICLE Normal left ventricular size. Mild concentric left ventricular hypertrophy. The left ventricular systolic function is normal with an estimated ejection fraction in the range of 55-60%. There is abnormal (paradoxical) septal motion usually due to open thoracic surgery, IVCD, or PPM. Doppler parameters are consistent with impaired left ventricular relaxtion (grade 1 diastolic dysfun ction). RIGHT VENTRICLE Normal right ventricular size and systolic function. LEFT ATRIUM The left atrial size is mildly dilated. RIGHT ATRIUM The right atrial size is mildly dilated. ATRIAL SEPTUM No atrial level shunt is demonstrated by color flow Doppler interrogation. AORTA The aortic root and proximal ascending aorta are normal in size on limited imaging. MITRAL VALVE Structurally normal mitral valve. No mitral valve stenosis or regurgitation. AORTIC VALVE Trileaflet aortic valve. No aortic valve stenosis or regurgitation. TRICUSPID VALVE Structurally normal tricuspid valve. No tricuspid valve stenosis. There is mild tricuspid valve regurgitation. The estimated pulmonary arterial pressure is 46.7 mmHg. PULMONARY VALVE No pulmonary valve regurgitation or stenosis. VESSELS The inferior vena cava is normal in size. PERICARDIUM There is a trace pericardial effusion present. A prominent epicardial fat pad is present. Sumit Flores DO (Electronically Signed) Final Date:17 April 2018 15:08
[2018-04-17] MEDS: Azithromycin Inj 500 MG in Sodium Chlor 0.9% Inj 250 ML IV.SIG SCH (20:01)
[2018-04-18] MEDS: Morphine Inj 4 MG/ML Vial IV.PUSH PRN ×2 (03:37→11:00)
[2018-04-18] MEDS: hydrALAZINE 25 MG Tablet PO PRN (03:58)
[2018-04-18] MEDS: amLODIPine 10 MG Tablet PO SCH (08:28)
[2018-04-18] MEDS: Senna/Docusate Sodium 8.6/50 MG Tablet PO SCH (08:28)
[2018-04-18] MEDS: MethylPREDNISolone Sod Succinate Inj 40 MG/ML Vial IV.PUSH SCH (08:28)
[2018-04-18] MEDS: Insulin Detemir Inj 1,000 UNIT/10 ML Vial SQ SCH (08:29)
[2018-04-18] MEDS: Carvedilol 6.25 MG Tablet PO SCH (08:29)
[2018-04-18] MEDS: Insulin NovoLOG Aspart Correctional Sugar Inj SQ SCH ×2 (08:29→12:30)
[2018-04-18] MEDS: Budesonide-Formoterol 160/4.5 MCG 6 GM Inhaler INH SCH (08:38)
--- NOTE | 2018-04-18 11:23 | P.PN ---
Subjective Interval history: Follow-up bilateral PE/COPD exacerbation/pneumonia April 15, 2018-patient seen and examined, complains of shortness of breath and also reports chest pain. Currently afebrile. April 16, 2018-patient seen and examined, states she is not feeling well, still with some shortness of breath as well as chest pain. Also complaining of leg pains April 17, 2018-patient seen and examined,still complaining of having a hard time to breath with significant shortness of breath April 18, 2018-patient seen and examined, reported improvement of shortness of breath and currently afebrile. States she would like to go home today. Physical Exam Vital signs: Vital Signs 04/17/18 12:00 04/17/18 15:00 04/17/18 16:00 Temperature 97.5 F L 95.7 F L Pulse Rate 74 Respiratory Rate 22 20 Blood Pressure 136/83 118/74 Pulse Oximetry 96 94 L 94 L 04/17/18 19:00 04/17/18 20:00 04/17/18 20:47 Temperature 98.1 F Pulse Rate 81 84 88 Respiratory Rate 18 22 Blood Pressure 159/92 H Pulse Oximetry 97 95 04/17/18 23:00 04/18/18 00:00 04/18/18 03:00 Temperature 98.4 F Pulse Rate 75 83 69 Respiratory Rate 16 Blood Pressure 130/82 Pulse Oximetry 97 96 04/18/18 04:00 04/18/18 07:00 04/18/18 07:58 Temperature 97.5 F L 97.0 F L Pulse Rate 67 71 82 Respiratory Rate 18 24 Blood Pressure 162/98 H 153/105 H Pulse Oximetry 94 L 95 04/18/18 08:21 04/18/18 11:00 04/18/18 11:06 Temperature 97.2 F L Pulse Rate 82 68 75 Respiratory Rate 16 24 Blood Pressure 151/90 H Pulse Oximetry 95 95 95 Intake & Output 04/17/18 04/18/18 04/18/18 18:59 06:59 18:59 Intake Total 660 / 660 590 / 590 Output Total 1200 / 1200 800 / 800 Balance -540 / -540 -210 / -210 Weight 94.6 kg Intake: IV 100 / 100 350 / 350 Azithromycin Inj 500 MG In NS 250 / 250 Inj 250 ML @ 250 mls/hr IV.SIG Q24H [facility] Rx#:[id number] Rocephin Inj 1,000 MG In NS Inj 100 / 100 100 / 100 100 ML @ 200 mls/hr IV.SIG Q24H [facility] Rx#:[id number] Oral 560 / 560 240 / 240 Output: Urine 1200 / 1200 800 / 800 Other: Date of Last Bowel Movement 04/17/18 04/18/18 04/17/18 # Bowel Movements 1 1 Narrative: GENERAL: NAD SKIN: Warm and dry. HEAD: Normocephalic. EYES: No scleral icterus. No injection or drainage. NECK: Supple, trachea midline. No JVD or lymphadenopathy. CARDIOVASCULAR: Regular rate and rhythm without murmurs, gallops, or rubs. RESPIRATORY: Breath sounds equal bilaterally. No accessory muscle use. GASTROINTESTINAL: Abdomen soft, non-tender, nondistended. MUSCULOSKELETAL: No cyanosis, or edema. BACK: Nontender without obvious deformity. No CVA tenderness. Results - Labs CBC & Chem 7: 04/16/18 04:47 04/16/18 04:47 Laboratory Results - last 24 hr 04/17/18 04/17/18 04/17/18 11:38 17:00 19:27 POC Glucose 304 H 150 H 165 H 04/18/18 08:09 POC Glucose 184 H - Procedures None Assessment and Plan - Assessment (1) Chest pain Code(s): R07.9 - Chest pain, unspecified Status: Acute (2) PE (pulmonary thromboembolism) Code(s): I26.99 - Other pulmonary embolism without acute cor pulmonale Status : Acute (3) COPD (chronic obstructive pulmonary disease) Code(s): J44.9 - Chronic obstructive pulmonary disease, unspecified Status: Acute (4) PNA (pneumonia) Code(s): J18.9 - Pneumonia, unspecified organism Status: Acute (5) Diabetes Code(s): E11.9 - Type 2 diabetes mellitus without complications Status: Acute (6) DVT (deep venous thrombosis) Code(s): I82.409 - Acute embolism and thrombosis of unspecified deep veins of unspecified lower extremity Status: Acute - Plan 62-year-old female with 1. Chest Pain: likely secondary to PE. ACS ruled out per protocol with serial cardiac enzyme and EKGs. Cardio consult as needed. 2. PE/DVT: CTA Pulm w/ bilateral subsegmental PE. Continue with DuoNeb, Symbicort, monitor O2, Echo/cardiac enzymes as above. s/p Lovenox 100mg bid and continue Pradaxa 150mg twice a day 04/17/18. Appreciate input from hematology 3. PNA: CTA Pulm w/ LLL infiltrate, s/p Rocephin/Zithro, continue w/ IV Abx, DuoNeb prn. Will switch to p.o. azithromycin on discharge 4. COPD: Chronic Respiratory Failure w/ Acute Exacerbation, Moderate. Now resolved, discontinue Solu-Medrol and start prednisone 20 mg daily. Continue with other treatment DuoNeb prn, Symbicort. 5. DM: Sliding scale w/ Accu-cheks. Continue outpatient medications 6. Hypertension-labile Continue Coreg 6.25 mg p.o. twice daily and continue with hydralazine as needed 7. DVT Prophylaxis: Pradaxa
--- NOTE | 2018-04-18 11:26 | P.DS ---
Date of admission: 04/14/18 21:39 Primary care physician: No Primary Care Physician Anticipated date of discharge: 04/18/18 Brief History from admission: This is a 67-year-old female with a PMH of HTN, COPD, DM and RLE DVT on Xarelto who presented to the ER w/ complaints of SOB and chest pain x3 days. Seen in ER on 03/27/18 for c/o right leg pain, RLE Doppler w/ occlusive thrombus, d/c'd home on Xarelto. Reports ongoing right leg pain, severe, 10/10, non-radiating. States she was unable to fill Xarelto for several days, but reports compliance now. Notes progressive SOB and chest pain x3 days, no fever or chills, denies cough or sick contacts. On arrival, BP 172/89, HR 76, O2 sat 94 % on RA, Afebrile. CBC unremarkable. INR 1.0. Chemistry essentially at baseline. Troponin negative. CTA Chest with bilateral subsegmental pulmonary emboli predominantly in the lower lobes, left lower lobe consolidating airspace disease with parapneumonic effusion. S/p Rocephin/Zithro in ER. DS: Diagnosis - Discharge Diagnosis (1) Chest pain Status: Acute (2) PE (pulmonary thromboembolism) Status: Acute (3) COPD (chronic obstructive pulmonary disease) Status: Acute (4) PNA (pneumonia) Status: Acute (5) Diabetes Status: Acute (6) DVT (deep venous thrombosis) Status: Acute DS: Summary Hospital Course: While in hospital, patient was treated for: 1. Chest Pain: likely secondary to PE. ACS ruled out per protocol with serial cardiac enzyme and EKGs. 2. PE/DVT: CTA Pulm w/ bilateral subsegmental PE. Treated with with DuoNeb, Symbicort, monitor O2, Echo/cardiac enzymes as above. s/p Lovenox 100mg bid and started on Pradaxa 150mg twice a day 04/17/18. Appreciate input from hematology 3. PNA: CTA Pulm w/ LLL infiltrate, s/p Rocephin/Zithro, improved w/ IV Abx, DuoNeb prn. Will switch to p.o. azithromycin on discharge 4. COPD: Chronic Respiratory Failure w/ Acute Exacerbation, Moderate. Now resolved, discontinue Solu-Medrol and started on prednisone 20 mg daily. Continue with other treatment DuoNeb prn, Symbicort. 5. DM: Sliding scale w/ Accu-cheks. Outpatient medications were continued 6. Hypertension-labile Treated with Coreg 6.25 mg p.o. twice daily and continue with hydralazine as needed 7. DVT Prophylaxis: Pradaxa - Time Spent with Patient Total time spent providing and/or coordinating discharge services: Less than 30 minutes - Quality: VTE Deep Vein Thrombosis/Pulmonary Embolism Present on Admission: Yes Exam Vital signs: Vital Signs 04/17/18 12:00 04/17/18 15:00 04/17/18 16:00 Temperature 97.5 F L 95.7 F L Pulse Rate 74 Respiratory Rate 22 20 Blood Pressure 136/83 118/74 Pulse Oximetry 96 94 L 94 L 04/17/18 19:00 04/17/18 20:00 04/17/18 20:47 Temperature 98.1 F Pulse Rate 81 84 88 Respiratory Rate 18 22 Blood Pressure 159/92 H Pulse Oximetry 97 95 04/17/18 23:00 04/18/18 00:00 04/18/18 03:00 Temperature 98.4 F Pulse Rate 75 83 69 Respiratory Rate 16 Blood Pressure 130/82 Pulse Oximetry 97 96 04/18/18 04:00 04/18/18 07:00 04/18/18 07:58 Temperature 97.5 F L 97.0 F L Pulse Rate 67 71 82 Respiratory Rate 18 24 Blood Pressure 162/98 H 153/105 H Pulse Oximetry 94 L 95 04/18/18 08:21 04/18/18 11:00 04/18/18 11:06 Temperature 97.2 F L Pulse Rate 82 68 75 Respiratory Rate 16 24 Blood Pressure 151/90 H Pulse Oximetry 95 95 95 Intake & Output 04/17/18 04/18/18 04/18/18 18:59 06:59 18:59 Intake Total 660 / 660 590 / 590 Output Total 1200 / 1200 800 / 800 Balance -540 / -540 -210 / -210 Weight 94.6 kg Intake: IV 100 / 100 350 / 350 Azithromycin Inj 500 MG In NS 250 / 250 Inj 250 ML @ 250 mls/hr IV.SIG Q24H [facility] Rx#:[id number] Rocephin Inj 1,000 MG In NS Inj 100 / 100 100 / 100 100 ML @ 200 mls/hr IV.SIG Q24H [facility] Rx#:[id number] Oral 560 / 560 240 / 240 Output: Urine 1200 / 1200 800 / 800 Other: Date of Last Bowel Movement 04/17/18 04/18/18 04/17/18 # Bowel Movements 1 1 Narrative: GENERAL: NAD SKIN: Warm and dry. HEAD: Normocephalic. EYES: No scleral icterus. No injection or drainage. NECK: Supple, trachea midline. No JVD or lymphadenopathy. CARDIOVASCULAR: Regular rate and rhythm without murmurs, gallops, or rubs. RESPIRATORY: Breath sounds equal bilaterally. No accessory muscle use. GASTROINTESTINAL: Abdomen soft, non-tender, nondistended. MUSCULOSKELETAL: No cyanosis, or edema. BACK: Nontender without obvious deformity. No CVA tenderness. Results Procedures completed during hospitalization: None Labs on day of discharge: Labs from last 24 hours 04/18/18 04/17/18 04/17/18 08:09 19:27 17:00 POC Glucose 184 H 165 H 150 H 04/17/18 11:38 POC Glucose 304 H - Impressions ITS Impressions Chest X-Ray 04/14/18 19:03 CONCLUSION: Mild bilateral mid lung atelectasis. No other evidence of acute cardiopulmonary process. Chest CTA 04/14/18 19:04 CONCLUSION: 1. Bilateral subsegmental and subsegmental pulmonary emboli predominantly in the lower lobes. 2. Left lower lobe consolidating airspace disease with parapneumonic effusion. 3. Minimal atelectasis left base. Head CT 04/16/18 00:00 CONCLUSION: 1. No acute intracranial abnormality is seen. . Venous Doppler Study 04/16/18 00:00 CONCLUSION: 1. Persistent occlusive thrombus in the right distal femoral vein extending to the calf. 2. No sonographic evidence for left lower extremity DVT. Discharge Plan - Discharge Disposition Patient Disposition: Discharge Home - Discharge Condition Condition: Good - Discharge Order Discharge Orders: Discharge Order (Routine); Ordered 04/18/18 Ordered By: Eric Hendrix - Physicians Team Primary Care Provider: Primary Care Physici,No Attending Provider: Eric Hendrix Other Providers: Rubén Wu MD ; [employer]
--- NOTE | 2018-04-18 12:05 | P.PNONC ---
Subjective Interval history: Patient lying in bed, in no acute distress. She states that her breathing has improved. She also reports that the pain in her right lower extremity has improved. She continues on Pradaxa. She denies any bleeding. Objective Vital Signs/Intake & Output: Vital Signs 04/17/18 15:00 04/17/18 16:00 04/17/18 19:00 Temperature 95.7 F L Pulse Rate 74 81 Respiratory Rate 20 Blood Pressure 118/74 Pulse Oximetry 94 L 94 L 04/17/18 20:00 04/17/18 20:47 04/17/18 23:00 Temperature 98.1 F Pulse Rate 84 88 75 Respiratory Rate 18 22 Blood Pressure 159/92 H Pulse Oximetry 97 95 04/18/18 00:00 04/18/18 03:00 04/18/18 04:00 Temperature 98.4 F 97.5 F L Pulse Rate 83 69 67 Respiratory Rate 16 18 Blood Pressure 130/82 162/98 H Pulse Oximetry 97 96 94 L 04/18/18 07:00 04/18/18 07:58 04/18/18 08:21 Temperature 97.0 F L Pulse Rate 71 82 82 Respiratory Rate 24 16 Blood Pressure 153/105 H Pulse Oximetry 95 95 04/18/18 11:00 04/18/18 11:06 Temperature 97.2 F L Pulse Rate 68 75 Respiratory Rate 24 Blood Pressure 151/90 H Pulse Oximetry 95 95 Intake & Output 04/17/18 04/18/18 04/18/18 18:59 06:59 18:59 Intake Total 660 / 660 590 / 590 Output Total 1200 / 1200 800 / 800 Balance -540 / -540 -210 / -210 Weight 94.6 kg Intake: IV 100 / 100 350 / 350 Azithromycin Inj 500 MG In NS 250 / 250 Inj 250 ML @ 250 mls/hr IV.SIG Q24H [facility] Rx#:[id number] Rocephin Inj 1,000 MG In NS Inj 100 / 100 100 / 100 100 ML @ 200 mls/hr IV.SIG Q24H [facility] Rx#:[id number] Oral 560 / 560 240 / 240 Output: Urine 1200 / 1200 800 / 800 Other: Date of Last Bowel Movement 04/17/18 04/18/18 04/17/18 # Bowel Movements 1 1 Result Diagrams: 04/16/18 04:47 04/16/18 04:47 Laboratory Results: Laboratory Results - last 24 hr 04/17/18 04/17/18 04/18/18 17:00 19:27 08:09 POC Glucose 150 H 165 H 184 H Medications: Active Medications Generic Name Dose Route Start Last Admin Trade Name Holley PRN Reason Stop Dose Admin Hydrocodone Bitart/Acetaminophen 1 tab 04/15/18 12:26 04/18/18 08:06 [place] 7.5/325 PO 1 tab Q4H PRN Administration PAIN 6-10 Albuterol 1 ampul 04/17/18 14:00 04/18/18 08:21 Duoneb Neb (Eddie) NEB 1 ampul Q6HR WHILE AWAKE NEB [facility] Administration Amlodipine Besylate 10 mg 04/15/18 09:00 04/18/18 08:28 Norvasc PO 10 mg DAILY EDDIE Administration Budesonide/Formoterol Fumarate 2 puff 04/14/18 22:00 04/18/18 08:38 Symbicort 160/4.5 Mcg Inh INH 2 puff BID EDDIE Administration Carvedilol 6.25 mg 04/16/18 21:00 04/18/18 08:29 Coreg PO 6.25 mg BID EDDIE Administration Dabigatran 150 mg 04/17/18 09:00 04/18/18 08:28 Pradaxa PO 150 mg BID EDDIE Administration Hydralazine HCl 25 mg 04/15/18 08:56 04/18/18 03:58 Apresoline PO 25 mg TID PRN Administration SBP>160, DBP>90 Azithromycin 500 mg/ Sodium 250 mls @ 250 mls/hr 04/15/18 21:00 04/18/18 00: 33 Chloride IV.SIG Infused Q24H [facility] Infusion Ceftriaxone Sodium 1,000 mg/ 100 mls @ 200 mls/hr 04/15/18 21:00 04/18/18 00: 33 Sodium Chloride IV.SIG Infused Q24H [facility] Infusion Insulin Aspart 0 unit 04/15/18 08:00 04/18/18 08:29 Novolog Insulin Correctional Sugar Inj SQ 1 unit ACHS [facility] Administration Protocol Insulin Aspart 30 units 04/15/18 09:00 04/18/18 08:38 Novolog Inj SQ 30 units TID [facility] Administration Insulin Detemir 54 unit 04/15/18 09:00 04/18/18 08:29 Levemir Inj SQ 54 unit DAILY [facility] Administration Morphine Sulfate 2 mg 04/14/18 23:15 04/18/18 11:00 Morphine Inj IV.PUSH 2 mg Q3H PRN Administration BREAKTHROUGH PAIN Senna/Docusate Sodium 1 tab 04/15/18 09:00 04/18/18 08:28 Che-Colace PO 1 tab BID [facility] Administration Objective Remarks: GENERAL: Chronically ill-appearing obese female patient, lying in bed, in no acute distress. SKIN: Warm and dry. HEAD: Normocephalic. EYES: No scleral icterus. No injection or drainage. NECK: Supple, trachea midline. CARDIOVASCULAR: Distant heart sounds. RESPIRATORY: Bilateral breath sounds clear, equal. No accessory muscle use. O2 via nasal cannula. GASTROINTESTINAL: Abdomen soft, non-tender, nondistended. EXTREMITIES: No cyanosis or edema.+ Right great toe amputation. MUSCULOSKELETAL: Adequate muscle tone. NEUROLOGICAL: No obvious focal deficit. Awake, alert, and oriented x3. PSYCHIATRIC: Appropriate mood and affect; insight and judgment normal. Assessment/Plan - Plan Ms. Salcido is a pleasant 62-year-old female, with multiple chronic medical conditions. She was diagnosed with DVT approximately 2 weeks ago and was prescribed Xarelto. The patient reported that she was unable to fill the prescription for 1 week. She reported back to the emergency department with increasing shortness of breath and was found to have bilateral pulmonary embolisms and pneumonia. Plan: 1. DVT with bilateral pulmonary embolisms. Now on Pradaxa 150 mg p.o. twice daily. 2. Pain, subjectively improved. 3. Patient to continue Pradaxa 150 mg p.o. twice daily. - Attending Statement The exam, history, and the medical decision-making described in the above note were completed with the assistance of the mid-level provider. I reviewed and agree with the findings presented. I attest that I had a [id number] encounter with the patient on the same day, and personally performed and documented my assessment and findings in the medical record. Patient denies any bleeding. She has no significant chest pain. Shortness of breath continued to improve. Mild right lower extremity soreness. Edema has improved. Continue Pradaxa.
--- NOTE | 2018-04-18 12:42 | P.DCO ---
- Physical Therapy Order: Evaluate and treat - Home Health Nursing Order: Signs/symptoms of disease process - Certification I have seen patient Leticia Salcido on 04/18/18. My clinical findings support the need for the requested home health care services because: Patient has SOB, Deconditioned with increased weakness I certify that my clinical findings support that this patient is homebound because: Hx COPD - exertion dyspnea/weakness, Poor cardiac reserve
[2018-04-19] MEDS ORDERED: predniSONE 20 MG Tablet PO SCH (09:00)
== END 2018-04-18 16:04 | disposition home health service (06) ==
LOC: NEPE 18:42 → NEDA 21:39 → HCIS 04-15 07:56
PROVIDERS: ADMIT Hospitalist; ATTEND Hospitalist

== ENCOUNTER 2018-04-21 22:50 | Inpatient (IN) ==
[2018-04-21] MEDS ORDERED: Dextrose 50% in Water 50 ML Vial IV.PUSH PRN (23:03)
[2018-04-21] MEDS ORDERED: Sod Chloride 0.9% Inj 1,000 ML IV.SIG SCH ×2 (23:15→23:45)
[2018-04-21 23:32] LABS: Baso % (Auto) 0.3 % (0.0-2.0); Eos % (Auto) 0.3 % (0.0-4.0); Hemoglobin 14.6 gm/dL (11.6-15.3); Lymph # (Auto) 1.6 th/mm3 (1.0-4.8); Lymph % (Auto) 14.6 % (9.0-44.0); Mean Corpuscular Hemoglobin 29.5 pg (27.0-34.0); Mean Corpuscular Volume 86.7 fL (80.0-100.0); Mean Platelet Volume 9.9 fL (7.0-11.0); Mono # (Auto) 0.6 th/mm3 (0.0-0.9); Mono % (Auto) 5.3 % (0.0-8.0); Neut # (Auto) 8.6 th/mm3 (1.8-7.7); Neut % (Auto) 79.5 % (16.0-70.0); Platelet Count 267 th/mm3 (150-450); Red Blood Count 4.96 mil/mm3 (4.00-5.30); Red Cell Distribution Width 16.2 % (11.6-17.2); White Blood Count 10.9 th/mm3 (4.0-11.0)
--- NOTE | 2018-04-21 23:36 | XR ---
EXAM DATE: 04/21/2018 11:29 PM EDT AGE/SEX: 62 years / Female INDICATIONS: Shortness of breath. Confusion. CLINICAL DATA: This is the patient's initial encounter. Patient reports that signs and symptoms have been present for 1 day and indicates a pain score of 0/10. MEDICAL/SURGICAL HISTORY: . Chronic obstructive pulmonary disease. Diabetes mellitus type II. H ypertension. . Right toe amputation. COMPARISON: [facility] [place], CHEST 1V SINGLE AP, 04/14/2018. . FINDINGS: A single AP view of the chest demonstrates the lungs to be symmetrically aerated without evidence of mass, infiltrate or effusion. Linear scarring within the left midlung. Cardiomegaly. Osseous structur es are intact. CONCLUSION: Cardiomegaly. Clear lungs. Electronically signed by: Lc Soria MD 04/21/2018 11:35 PM EDT
--- NOTE | 2018-04-21 23:36 | ED ---
HPI General Chief complaint: Medical Clearance Stated complaint: Diabetic Time Seen by Provider: 04/21/18 23:03 Source: patient and EMS Mode of arrival: EMS Limitations: altered mental status History of Present Illness HPI narrative: Patient is a 62-year-old female with history of diabetes, presents the emergency room with EMS for evaluation of altered mental status. As per EMS, her friend called as patient was not acting like her normal self. Reports that they just had finished eating dinner. When EMS arrived on scene, patient was noted to have a high blood sugar. Blood sugar was 566 By EMS. Overall, patient reports "I'm not feeling good, I am just tired." Patient is unable to provide a full hpi at this time. BS here at [place] is 487 Related Data Home Medications Medication Instructions Recorded Confirmed gabapentin [Neurontin] 300 mg PO TID 03/12/18 04/14/18 insulin aspart U-100 [Novolog 30 unit SUB-Q TID 03/12/18 04/14/18 U-100 Insulin aspart] insulin glargine [Lantus U-100 54 unit SUB-Q DAILY 03/12/18 04/14/18 Insulin] umeclidinium-vilanterol [Anoro 1 inh INHALATION Q24H 03/12/18 04/14/18 Ellipta] Previous Rx's Medication Instructions Recorded amlodipine 10 mg PO DAILY #30 tab 03/12/18 amlodipine [Norvasc] 10 mg PO DAILY #30 tab 03/12/18 albuterol sulfate [Ventolin HFA] 2 puff INHALATION Q4-6H PRN #1 g 04/18/18 azithromycin [Zithromax] 250 mg PO DAILY #4 ml 04/18/18 budesonide-formoterol [Symbicort] 2 puff INH BID #1 g 04/18/18 carvedilol [Coreg] 6.25 mg PO BID #60 tab 04/18/18 dabigatran etexilate [Pradaxa] 150 mg PO BID #60 cap 04/18/18 ipratropium bromide [Atrovent HFA] 2 puff INHALATION Q6H #1 g 04/18/18 prednisone 20 mg PO DAILY #7 tab 04/18/18 Allergies Allergy/AdvReac Type Severity Reaction Status Date / Time penicillin G Allergy Severe Swelling Verified 04/14/18 18:48 Sulfa (Sulfonamide Allergy Severe Itching Verified 04/14/18 18:48 Antibiotics) *MDRO Multi-Drug Resistant AdvReac Unknown Itching, Uncoded 04/14/18 18:48 Organism Localized Review of Systems ROS: all other systems reviewed are negative PMFSH History History 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 Medical History Medical History Dependence on nocturnal oxygen therapy (Acute) HTN (hypertension) (Acute) Diabetes (Acute) COPD exacerbation (Acute) DVT (deep venous thrombosis) (Acute ~02/2018) Social History Social History Substance History: No History of Abuse Second Hand Smoke Exposure: No Smoking Status: Current every day smoker Tobacco Type: Cigarettes Packs Per Day: 0.5 (quit for 3 months, recently restarted tobacco use) Cigarettes Per Day: 10.0 Years Smoked: 40 Pack-Years: 20.00 How Often Do You Have a Drink Containing Alcohol: Never Hx Recent Travel: No Recent Travel in [facility] within the Last 8 Weeks: No Recent Out of Country Travel within the Last 8 Weeks: No Exam Narrative Exam Narrative: GENERAL: moderate distress SKIN: Focused skin assessment warm/dry. Patient with redness to her right axilla HEAD: Atraumatic. Normocephalic. EYES: Pupils equal and round. No scleral icterus. No injection or drainage. ENT: No nasal bleeding or discharge. Mucous membranes pink and moist. NECK: Trachea midline. No JVD. CARDIOVASCULAR: Regular rate and rhythm. No murmur appreciated. RESPIRATORY: No accessory muscle use. Scattered wheezing. Breath sounds equal bilaterally. GASTROINTESTINAL: Abdomen soft, non-tender, nondistended. Hepatic and splenic margins not palpable. MUSCULOSKELETAL: No obvious deformities. No clubbing. No cyanosis. No edema. NEUROLOGICAL: Awake and alert. PSYCHIATRIC: Flat mood and affect; insight and judgment normal. Course Reevaluation(s) Reevaluation #1: Patient with a lactic acid of 4.2, she has a penicillin allergy , patient was ordered Azactam, vancomycin as well as Flagyl as source of infection is unknown at this time. Blood sugars 527, will administer 10 units of subcu insulin. Time: 23:58 Initial Documented Vital Signs Pulse Rate 102 H 04/21/18 22:55 Respiratory Rate 22 04/21/18 22:55 Blood Pressure 108/63 04/21/18 22:55 Pulse Oximetry 95 04/21/18 22:55 Last Documented Vital Signs Temperature 98.4 F 04/21/18 23:15 Pulse Rate 92 H 04/22/18 00:29 Respiratory Rate 20 04/22/18 00:29 Blood Pressure 130/75 04/22/18 00:29 Pulse Oximetry 96 04/22/18 00:29 Medical Decision Making MDM Narrative Medical decision making narrative: During the course of the patients emergency department visit, the patients history, examination, and differential diagnosis were reviewed with the patient. The patient was placed on a cardiac rehab nurse with oximetry and frequent blood pressure monitoring. The patient had an IV access obtained and blood work sent for analysis. The patient was initially provided IVF Patient lactic acid was 4.3, patient was given her IV fluid bolus, Azactam, Flagyl as well as vancomycin ordered for sepsis with unknown source of infection. Currently UA is pending. Patient's blood sugars 527, she was given 10 units of insulin subcu Patient will need to be admitted to the hospital this time. Medical Screen Exam Complete: Yes Emergency Medical Condition: Yes Differential Diagnosis Differential Diagnosis: Altered mental status could be secondary to hyperglycemia, electrolyte abnormality, ACS, arrhythmia, intracranial hemorrhage , seizure, infection Medical Records Medical records reviewed: Yes I reviewed the patient's medical records. Lab Data Lab results reviewed: Yes I reviewed the patient's lab results. Result diagrams: 04/21/18 23:18 04/21/18 23:18 Lab Results 04/21/18 04/21/18 04/21/18 Range/Units 23:00 23:18 23:18 WBC 10.9 (4.0-11.0) th/mm3 RBC 4.96 (4.00-5.30) mil/mm3 Hgb 14.6 (11.6-15.3) gm/dL Hct 43.0 (35.0-46.0) % MCV 86.7 (80.0-100.0) fL MCH 29.5 (27.0-34.0) pg MCHC 34.0 (32.0-36.0) % RDW 16.2 (11.6-17.2) % Plt Count 267 (150-450) th/mm3 MPV 9.9 (7.0-11.0) fL Prelim Diff (Auto) Slide review pending Neut % (Auto) 79.5 H (16.0-70.0) % Lymph % (Auto) 14.6 (9.0-44.0) % Cowley % (Auto) 5.3 (0.0-8.0) % Eos % (Auto) 0.3 (0.0-4.0) % Baso % (Auto) 0.3 (0.0-2.0) % Neut # (Auto) 8.6 H (1.8-7.7) th/mm3 Lymph # (Auto) 1.6 (1.0-4.8) th/mm3 Cowley # (Auto) 0.6 (0.0-0.9) th/mm3 Eos # (Auto) 0.0 (0.0-0.4) th/mm3 Baso # (Auto) 0.0 (0.0-0.2) th/mm3 WBC Differential . Diff Scan Auto diff confirmed Differential Comment . Platelet Estimate Normal (Normal) Platelet Morphology Normal (Normal) RBC Morphology Normal (Normal) Puncture Site Patient Temperature O2 Saturation (90-100) % ABG pH (7.380-7.420) ABG pCO2 (38-42) mmHg ABG pO2 (61-120) mmHg ABG HCO3 (22-26) mmol/L ABG O2 Content (12.0-20.0) Vol % ABG Base Excess (-2-2) mmol/L ABG Methemoglobin (0-2) % Marco A Test Hemoglobin (12.0-16.0) G/DL Carboxyhemoglobin (0-4) % Inspired O2 % Critical Value Sodium 131 L (136-145) meq/L Potassium 4.4 (3.5-5.1) meq/L Chloride 92 L (98-107) meq/L Carbon Dioxide 28.2 (21.0-32.0) meq/L Anion Gap 11 (5-15) meq/L BUN 25 H (7-18) mg/dL Creatinine 1.73 H (0.50-1.00) mg/dL Estimated GFR 30 L (>89) mL/min POC Glucose 487 H* (68-110) mg/dl Random Glucose 527 H* (74-106) mg/dL Lactic Acid (0.4-2.0) mmol/L Calcium 8.7 (8.5-10.1) mg/dL Magnesium 1.8 (1.5-2.5) mg/dL Total Bilirubin 0.5 (0.2-1.0) mg/dL AST 16 (15-37) U/L ALT 34 (10-53) U/L Alkaline Phosphatase 87 (45-117) U/L Troponin I 0.02 (0.02-0.05) ng/mL Total Protein 7.5 D (6.4-8.2) g/dL Albumin 3.2 L (3.4-5.0) g/dL Beta-Hydroxybutyric Acd 0.08 (0.00-0.39) mmol/L 04/21/18 04/21/18 Range/Units 23:18 23:32 WBC (4.0-11.0) th/mm3 RBC (4.00-5.30) mil/mm3 Hgb (11.6-15.3) gm/dL Hct (35.0-46.0) % MCV (80.0-100.0) fL MCH (27.0-34.0) pg MCHC (32.0-36.0) % RDW (11.6-17.2) % Plt Count (150-450) th/mm3 MPV (7.0-11.0) fL Prelim Diff (Auto) Neut % (Auto) (16.0-70.0) % Lymph % (Auto) (9.0-44.0) % Cowley % (Auto) (0.0-8.0) % Eos % (Auto) (0.0-4.0) % Baso % (Auto) (0.0-2.0) % Neut # (Auto) (1.8-7.7) th/mm3 Lymph # (Auto) (1.0-4.8) th/mm3 Cowley # (Auto) (0.0-0.9) th/mm3 Eos # (Auto) (0.0-0.4) th/mm3 Baso # (Auto) (0.0-0.2) th/mm3 WBC Differential Diff Scan Differential Comment Platelet Estimate (Normal) Platelet Morphology (Normal) RBC Morphology (Normal) Puncture Site Left radial Patient Temperature 98.6 O2 Saturation 84 L* (90-100) % ABG pH 7.42 (7.380-7.420) ABG pCO2 42 (38-42) mmHg ABG pO2 82 (61-120) mmHg ABG HCO3 26 (22-26) mmol/L ABG O2 Content 16.6 (12.0-20.0) Vol % ABG Base Excess 2.2 H (-2-2) mmol/L ABG Methemoglobin 0.7 (0-2) % Marco A Test Present Hemoglobin 14.0 (12.0-16.0) G/DL Carboxyhemoglobin 13.2 H* (0-4) % Inspired O2 21 % Critical Value Yes Sodium (136-145) meq/L Potassium (3.5-5.1) meq/L Chloride (98-107) meq/L Carbon Dioxide (21.0-32.0) meq/L Anion Gap (5-15) meq/L BUN (7-18) mg/dL Creatinine (0.50-1.00) mg/dL Estimated GFR (>89) mL/min POC Glucose (68-110) mg/dl Random Glucose (74-106) mg/dL Lactic Acid 4.3 H* (0.4-2.0) mmol/L Calcium (8.5-10.1) mg/dL Magnesium (1.5-2.5) mg/dL Total Bilirubin (0.2-1.0) mg/dL AST (15-37) U/L ALT (10-53) U/L Alkaline Phosphatase (45-117) U/L Troponin I (0.02-0.05) ng/mL Total Protein (6.4-8.2) g/dL Albumin (3.4-5.0) g/dL Beta-Hydroxybutyric Acd (0.00-0.39) mmol/L Imaging Data Attestation: I personally reviewed and interpreted this imaging study as follows : Radiologist's impression: Chest X-Ray 04/21/18 23:03 CONCLUSION: Cardiomegaly. Clear lungs. Head CT 04/22/18 00:00 CONCLUSION: 1. No acute intracranial abnormality. . ECG Data EKG Prior to Arrival: No Attestation: I personally reviewed and interpreted this ECG as follows: Interpretation: EKG at 2310: sinus tach at 101bpm, qt/qtc: 368/426 Discharge Plan Discharge Disposition Patient Disposition: 30 Still Patient Discharge Condition Condition: Serious Discharge Details Diagnosis: Acute hyperglycemia, Sepsis Physicians Team ED Provider: Mona Arthur Rxs /Orders / Referrals /Forms Prescriptions: No Action umeclidinium-vilanterol [Anoro Ellipta] 62.5-25 mcg/actuation Blister With Device 1 inh INHALATION Q24H RF: 0 gabapentin [Neurontin] 600 mg Tablet 300 mg PO TID RF: 0 insulin glargine [Lantus U-100 Insulin] 100 unit/mL Solution 54 unit SUB-Q DAILY RF: 0 insulin aspart U-100 [Novolog U-100 Insulin aspart] 100 unit/mL Solution 30 unit SUB-Q TID RF: 0 amlodipine [Norvasc] 2.5 mg Tablet 10 mg PO DAILY Qty: 30 RF: 0 amlodipine 10 mg Tablet 10 mg PO DAILY Qty: 30 RF: 0 carvedilol [Coreg] 6.25 mg Tablet 6.25 mg PO BID Qty: 60 RF: 0 prednisone 20 mg Tablet 20 mg PO DAILY Qty: 7 RF: 0 budesonide-formoterol [Symbicort] 160-4.5 mcg/actuation Hfa Aerosol Inhaler 2 puff INH BID Qty: 1 RF: 3 dabigatran etexilate [Pradaxa] 150 mg Capsule 150 mg PO BID Qty: 60 RF: 3 ipratropium bromide [Atrovent HFA] 17 mcg/actuation Hfa Aerosol Inhaler 2 puff INHALATION Q6H Qty: 1 RF: 3 albuterol sulfate [Ventolin HFA] 90 mcg/actuation Hfa Aerosol Inhaler 2 puff INHALATION Q4-6H PRN (Reason: Shortness Of Breath) Qty: 1 RF: 3 azithromycin [Zithromax] 100 mg/5 mL Suspension For Reconstitution 250 mg PO DAILY Qty: 4 RF: 0 Discharge Interventions Interventions: Vital Signs Last Done: 04/22/18 00:29 Status ED Status: With Doctor
[2018-04-21 23:45] LABS: ABG Base Excess 2.2 mmol/L (-2-2); ABG PCO2 42 mmHg (38-42); ABG PO2 82 mmHg (61-120)
[2018-04-21 23:47] LABS: Alanine Aminotransferase 34 U/L (10-53); Albumin 3.2 g/dL (3.4-5.0); Anion Gap 11 meq/L (5-15); Aspartate Aminotransferase 16 U/L (15-37); Blood Urea Nitrogen 25 mg/dL (7-18); Calcium 8.7 mg/dL (8.5-10.1); Carbon Dioxide 28.2 meq/L (21.0-32.0); Chloride 92 meq/L (98-107); Glomerular Filtration Rate 30 mL/min (>89); Magnesium 1.8 mg/dL (1.5-2.5); Platelet Estimate Normal (Normal); Platelet Morphology Normal (Normal); Potassium 4.4 meq/L (3.5-5.1); RBC Morphology Normal (Normal); Sodium 131 meq/L (136-145)
[2018-04-21 23:52] LABS: Alkaline Phosphatase 87 U/L (45-117); Beta Hydroxybutyric Acid 0.08 mmol/L (0.00-0.39); Total Protein 7.5 g/dL (6.4-8.2); Troponin I 0.02 ng/mL (0.02-0.05)
[2018-04-21] MEDS ORDERED: Vancomycin Inj 1,000 MG in Sodium Chlor 0.9% Inj 250 ML IV.SIG STA (23:56)
[2018-04-21] MEDS ORDERED: Aztreonam Inj 2 GM in Sodium Chloride 0.9% Inj 100 ML IV.SIG STA (23:56)
[2018-04-21 23:57] LABS: Glucose,Random 527 mg/dL (74-106)
[2018-04-22] MEDS ORDERED: Sod Chloride 0.9% Inj 1,000 ML IV.SIG ONE (00:04)
--- NOTE | 2018-04-22 00:38 | CT ---
EXAM DATE: 04/22/2018 12:31 AM EDT AGE/SEX: 62 years / Female INDICATIONS: Altered mental status. CLINICAL DATA: This is the patient's initial encounter. Patient reports that signs and symptoms have been present for 1 day and indicates a pain score of 0/10. MEDICAL/SURGICAL HISTORY: Chronic obstructive pulmonary disease. Hypertension. Diabetes. None. RADIATION DOSE: 56.35 CTDI (mGy) COMPARISON: [facility] [place], CT HEAD W/O CONTRAST, 04/16/2018. . TECHNIQUE: CT of the head without contrast. Using automated exposure control and adjustment of the mA and/or kV according to patient size, radiation dose was kept as low as reasonably achievable to ob tain optimal diagnostic quality images. DICOM format image data is available electronically for revi ew and comparison. FINDINGS: Cerebrum: The ventricles are normal for age. No evidence of midline shift, mass lesion, hemorrhage or acute infarction. No extraaxial fluid collections are seen. Posterior Fossa: The cerebellum and brainstem are intact. The 4th ventricle is midline. The cerebe llopontine angle is unremarkable. Extracranial: The visualized portion of the orbits is intact. Skull: The calvaria is intact. No evidence of skull fracture. CONCLUSION: 1. No acute intracranial abnormality. . Electronically signed by: Lc Soria MD 04/22/2018 12:36 AM EDT
[2018-04-22 01:57] LABS: Bilirubin,Urine Negative (Negative); Clarity,Urine Clear (Clear); Color,Urine Yellow (Yellw/Straw); Glucose,Urine (UA) 500 or Greater mg/dL (Negative); Leukocyte Esterase,Urine Negative (Negative); Mucus,Urine Few /lpf (Occasional); Nitrite,Urine Negative (Negative); Specific Gravity,Urine 1.028 (1.002-1.035); Squamous Epithelial Cell,Urine 1 /hpf (0-5)
[2018-04-22 02:36] LABS: ABG Base Excess 0.2 mmol/L (-2-2); ABG PCO2 43 mmHg (38-42); ABG PO2 57 mmHg (61-120)
[2018-04-22] MEDS ORDERED: Dextrose 50% in Water 50 ML Vial IV.PUSH PRN (09:18)
--- NOTE | 2018-04-22 09:33 | P.HPCC ---
History of Present Illness Service: critical care medicine Primary Care Physician: UNKNOWN Chief Complaint: Altered mental status History of Present Illness: 62-year-old female with a medical history significant for diabetes mellitus who was brought to the ER last night with altered mental status. Per documentation she was not acting her normal self according to a friend while they were having dinner. EMS checked her sugar at home which is 566. Patient on arrival in the ER said "I am not feeling good I am just tired". Patient had an elevated lactic acid in the ER however has not had any fever and does not have a white count. Her UA is clear and her chest x-ray is clear. She was initially felt to have sepsis and received empiric antibiotics in the ER. A head CT in the ER was negative for any bleed. Critical care medicine was requested to admit the patient to the ICU. When I evaluated the patient in the ER she was laying in the ER stretcher in restraints. She was awake and alert however slightly confused and disoriented. She thought she was in [facility] however she could give me the right date month and year. Her mental status appeared to be fluctuating. Her speech was slightly slurred. She was moving all 4 extremities. Patient is a smoker and her carboxyhemoglobin on her ABG on arrival was 14 which was decreased to 10% subsequently. History was obtained by discussion with nursing staff and reviewing records. Patient is a very poor historian at this time. Inpatient Certification: I certify that the inpatient services were ordered in accordance with Medicare regulations governing the order. 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 - Medical History Medical History: Medical History (Last Reviewed 04/21/18 @ 23:34 by Mona Arthur) Dependence on nocturnal oxygen therapy (Acute) HTN (hypertension) (Acute) Diabetes (Acute) COPD exacerbation (Acute) DVT (deep venous thrombosis) Onset Date: ~02/2018 - Tobacco History Second Hand Smoke Exposure: Yes Tobacco Use In Past 30 Days: Yes Smoking Status: Current every day smoker Tobacco Type: Cigarettes Packs Per Day: 0.5 (quit for 3 months, recently restarted tobacco use) Years Smoked: 40 - Alcohol History How Often Do You Have a Drink Containing Alcohol: Monthly or less - Substance Use History Substance History: No History of Abuse - Travel History History of Recent Travel: No Recent Travel in the [place] Within the Last 8 Weeks: No Recent Travel Out of the Country Within the Last 8 Weeks: No - Immunization History Tetanus Immunization: <5 Years Hx Influenza Vaccine This Season: No Medications and Allergies Active Medications: Active Medications Al Hydroxide/Mg Hydroxide (Milk Of Yves Hilton) 30 ml PO Q12H PRN PRN Reason: Mild Constipation Chlorhexidine Gluconate (Chlorhexidine 2% Cloth) 3 pack TOPICAL DAILY@0400 BONNY Stop: 04/28/18 03:59 Chlorhexidine Gluconate (Chlorhexidine 2% Cloth) 3 pack TOPICAL DAILY@0400 PRN PRN Reason: Extra cloth needed Stop: 04/28/18 03:59 Dextrose (D50w Vial) 50 ml IV.PUSH UNSCH PRN PRN Reason: PER HYPOGLYCEMIA PROTOCOL Glucagon (Glucagon Inj) 1 mg OTHER PRN PRN PRN Reason: for Hypoglycemia Protocol Sodium Chloride (Ns Inj) 1,000 mls @ 0 mls/hr IV.SIG BOLUS BONNY Last Infusion: 04/22/18 01:47 Dose: Infused Sodium Chloride (Ns Inj) 1,000 mls @ 0 mls/hr IV.SIG BOLUS BONNY Last Infusion: 04/22/18 03:04 Dose: Infused Potassium Chloride 10 meq/ (Sodium Chloride) 1,005 mls @ 125 mls/hr IV.CONT .Q8H3M BONNY Insulin Aspart (Novolog Insulin Correctional Sugar Inj) 0 unit SQ ACHS BONNY; Protocol Senna/Docusate Sodium (Che-Colace) 1 tab PO BID BONNY Sodium Chloride (Ns Flush) 2 ml IV.FLUSH PRN PRN PRN Reason: FLUSH AFTER USING IV ACCESS Allergies Allergy/AdvReac Type Severity Reaction Status Date / Time penicillin G Allergy Severe Swelling Verified 04/14/18 18:48 Sulfa (Sulfonamide Allergy Severe Itching Verified 04/14/18 18:48 Antibiotics) *MDRO Multi-Drug Resistant AdvReac Unknown Itching, Uncoded 04/14/18 18:48 Organism Localized Home Medications Medication Instructions Recorded Confirmed Type gabapentin [Neurontin] 300 mg PO TID 03/12/18 04/14/18 History insulin aspart U-100 [Novolog 30 unit SUB-Q TID 03/12/18 04/14/18 History U-100 Insulin aspart] insulin glargine [Lantus U-100 54 unit SUB-Q DAILY 03/12/18 04/14/18 History Insulin] umeclidinium-vilanterol [Anoro 1 inh INHALATION Q24H 03/12/18 04/14/18 History Ellipta] Results - Labs CBC & Chem 7: 04/21/18 23:18 04/21/18 23:18 Labs: Short CBC 04/21/18 Range/Units 23:18 WBC 10.9 (4.0-11.0) th/mm3 Hgb 14.6 (11.6-15.3) gm/dL Hct 43.0 (35.0-46.0) % Plt Count 267 (150-450) th/mm3 BMP 04/21/18 23:18 Sodium 131 L Potassium 4.4 Chloride 92 L Carbon Dioxide 28.2 BUN 25 H Creatinine 1.73 H Calcium 8.7 Cardiac Enzymes 04/21/18 Range/Units 23:18 Troponin I 0.02 (0.02-0.05) ng/mL Liver Function 04/21/18 Range/Units 23:18 Total Bilirubin 0.5 (0.2-1.0) mg/dL AST 16 (15-37) U/L ALT 34 (10-53) U/L Alkaline Phosphatase 87 (45-117) U/L Albumin 3.2 L (3.4-5.0) g/dL Urine 04/22/18 Range/Units 01:27 Urine Color Yellow (Yellw/Straw) Urine Clarity Clear (Clear) Urine pH 6.0 (5.0-8.5) Ur Specific [place] 1.028 (1.002-1.035) Urine Protein 30 H (Neg-Trace) mg/dL Urine Glucose (UA) 500 or greater (Negative) mg/dL - Imaging Impressions Chest X-Ray 04/21/18 23:03 CONCLUSION: Cardiomegaly. Clear lungs. Head CT 04/22/18 00:00 CONCLUSION: 1. No acute intracranial abnormality. . Exam Vital signs: Vital Signs 04/21/18 22:55 04/21/18 23:15 04/21/18 23:52 Temperature 98.4 F Pulse Rate 102 H 96 H Respiratory Rate 22 22 Blood Pressure 108/63 105/60 Pulse Oximetry 95 95 04/22/18 00:29 04/22/18 02:35 04/22/18 07:00 Temperature Pulse Rate 92 H 94 H 93 H Respiratory Rate 20 20 16 Blood Pressure 130/75 110/62 149/80 H Pulse Oximetry 96 92 L Intake & Output 04/21/18 04/22/18 04/22/18 18:59 06:59 18:59 Intake Total 3450 / 3450 Balance 3450 / 3450 Intake: IV 3450 / 3450 Azactam Inj 2 GM In NS Inj 100 100 / 100 ML @ 200 mls/hr IV.SIG STAT STA Rx#:[id number] NS Inj 1,000 ML @ Wide Open IV. 3000 / 3000 SIG BOLUS BONNY Rx#:[id number] Vancomycin Inj 1,000 MG In NS 250 / 250 Inj 250 ML @ 250 mls/hr IV.SIG STAT STA Rx#:[id number] Flagyl 500 MG Inj 100 ML @ 100 100 / 100 mls/hr IV.SIG STAT STA Rx#: [id number] Narrative: HEENT/Neuro: No pallor or icterus, tongue moist, LAURA, Awake alert, disoriented though she knows she is in hospital she thought she was in [facility]. She could give me the right date month and year. Could not give me details of her history and at times seems to stare blankly and not respond, nonfocal grossly, moving all 4 extremities Neck: No JVD Chest/pulmonary: CTA bilaterally Cardiovascular: S1-S2 regular no gallop or murmur GI/abdomen: Soft, nontender, bowel sounds present Extremities: Warm bilaterally, no edema Caprini VTE Risk Assessment Caprini VTE Risk Assessment: Moderate/High Risk (score >= 2) Caprini Risk Assessment Model: Point Value = 1 Point Value = 2 Point Value = 3 Point Value = 5 Age 41-60 Minor surgery BMI > 25 kg/m2 Swollen legs Varicose veins or History of unexplained or recurrent spontaneous Oral contraceptives or hormone replacement Sepsis (< 1 month) Serious lung disease, including pneumonia (< 1 month) Abnormal pulmonary function Acute myocardial infarction Congestive heart failure (< 1 month) History of inflammatory bowel disease Medical patient at bed rest Age 61-74 Arthroscopic surgery Major open surgery (> 45 min) Laparoscopic surgery (> 45 min) Malignancy Confined to bed (> 72 hours) Immobilizing plaster cast Central venous access Age >= 75 History of VTE Family history of VTE Factor V Leiden Prothrombin [id number] Lupus anticoagulant Anticardiolipin antibodies Elevated serum homocysteine Heparin-induced thrombocytopenia Other congenital or acquired thrombophilia Stroke (< 1 month) Elective arthroplasty Hip, pelvis, or leg fracture Acute spinal cord injury (< 1 month) Prophylaxis Regimen: Total Risk Factor Score Risk Level Prophylaxis Regimen 0-1 Low Early ambulation 2 Moderate Order ONE of the following: *Sequential Compression Device (SCD) *Heparin 5000 units SQ BID 3-4 Higher Order ONE of the following medications: *Heparin 5000 units SQ TID *Enoxaparin/Lovenox 40 mg SQ daily (WT < 150 kg, CrCl > 30 mL/min) *Enoxaparin/Lovenox 30 mg SQ daily (WT < 150 kg, CrCl > 10-29 mL/min) *Enoxaparin/Lovenox 30 mg SQ BID (WT < 150 kg, CrCl > 30 mL/min) AND/OR *Sequential Compression Device (SCD) 5 or more Highest Order ONE of the following medications: *Heparin 5000 units SQ TID (Preferred with Epidurals) *Enoxaparin/Lovenox 40 mg SQ daily (WT < 150 kg, CrCl > 30 mL/min) *Enoxaparin/Lovenox 30 mg SQ daily (WT < 150 kg, CrCl > 10-29 mL/min) *Enoxaparin/Lovenox 30 mg SQ BID (WT < 150 kg, CrCl > 30 mL/min) AND *Sequential Compression Device (SCD) Assessment and Plan - Assessment and Plan Plan: 62-year-old female with: Encephalopathy Uncontrolled diabetes mellitus Hyperlactatemia COPD on nocturnal home O2 Plan: Neuro: Follow neuro status. Head CT negative for bleed. Will obtain EEG and neuro consult. May require MRI brain however will wait for neurology evaluation. Patient reportedly takes trazodone at home as well as Neurontin which are currently being held. Will use Precedex if needed for agitation and avoid long-acting sedatives and narcotics. Cardiovascular: IV hydration, watch for hypotension Pulmonary: Chest x-ray clear currently. Will use bronchodilators and supplemental O2 as needed in view of her history of COPD. GI/liver: Advance p.o. diet as tolerated if she passes a swallow evaluation. Renal/: IV hydration, strict intake output, monitor and replete electrolytes, follow BUN/creatinine Endocrine: SSI for glycemic control as needed. If tolerating p.o. diet will initiate long-acting insulin. ID: Patient has not had any fever and does not have leukocytosis. UA is clear chest x-ray is clear. Hold off on antibiotics at this time. Heme: Follow CBC Prophylaxis: SCDs. Will initiate subcutaneous Lovenox once okay with neurology. (Awaiting neuro decision if patient needs an LP)
[2018-04-22] MEDS: Potassium Chloride Inj 10 MEQ in Sod Chloride 0.9% Inj 1,000 ML IV.CONT SCH ×2 (09:56→19:00)
[2018-04-22] MEDS: Dexmedetomidine Inj 200 MCG in Sodium Chlor 0.9% Inj 48 ML IV.CONT PRN ×4 (11:35→23:23)
[2018-04-22] MEDS: Insulin NovoLOG Aspart Correctional Sugar Inj SQ SCH ×3 (12:43→21:30)
--- NOTE | 2018-04-22 15:22 | ECG ---
Date Performed: 04/21/2018 Time Performed: 23:10:46 PTAGE: 62 years EKG: SINUS TACHYCARDIA Borderline right axis deviation Incomplete right bundle branch block Atri al abnormality PACs Compared to previous tracing, atrial abnormality more prominent and right ventric ular conduction disturbance is new. ABNORMAL ECG PREVIOUS TRACING : 04/14/2018 19.16.07 DOCTOR: Miller Zazueta Interpretating Date/Time 04/22/2018 15:20:34
--- NOTE | 2018-04-22 18:21 | MG ---
cc: Richard Jim MD, PhD TEST NUMBER: [id number] TECHNIQUE: A 17-channel EEG. DESCRIPTION: The background rhythm reveals symmetrical alpha activity, frequency 8 Hz, amplitude about 20 microvolts. There is fairly prominent muscle artifact. There is some slowing in the theta range, probably related to sedation or drowsiness. No lateralizing features are identified. I do not see any epileptiform discharges. Photic stimulation results in a normal driving response. INTERPRETATION: Normal EEG. Richard Jim MD, PhD ЕКАТЕРИНА/dougie , 04:48 PM , 04:53 PM
[2018-04-22] MEDS: Senna/Docusate Sodium 8.6/50 MG Tablet PO SCH (21:31)
[2018-04-23] MEDS: Dexmedetomidine Inj 200 MCG in Sodium Chlor 0.9% Inj 48 ML IV.CONT PRN ×2 (02:38→05:48)
[2018-04-23] MEDS: Potassium Chloride Inj 10 MEQ in Sod Chloride 0.9% Inj 1,000 ML IV.CONT SCH (02:38)
[2018-04-23] MEDS ORDERED: Chlorhexidine Gluconate 2% 1 Pack (2 Cloths) TOPICAL PRN (04:00)
[2018-04-23] MEDS ORDERED: Labetalol HCl Inj 100 MG/20 ML Vial IV.PUSH PRN ×2 (04:05→08:02)
[2018-04-23] MEDS: Chlorhexidine Gluconate 2% 1 Pack (2 Cloths) TOPICAL SCH (06:05)
--- NOTE | 2018-04-23 08:04 | P.PNCC ---
Subjective Subjective Remarks/Hospital Course: 62-year-old female with a medical history significant for diabetes mellitus who was brought to the ER last night with altered mental status. Per documentation she was not acting her normal self according to a friend while they were having dinner. EMS checked her sugar at home which is 566. Patient on arrival in the ER said "I am not feeling good I am just tired". Patient had an elevated lactic acid in the ER however has not had any fever and does not have a white count. Her UA is clear and her chest x-ray is clear. She was initially felt to have sepsis and received empiric antibiotics in the ER. A head CT in the ER was negative for any bleed. Critical care medicine was requested to admit the patient to the ICU. When I evaluated the patient in the ER she was laying in the ER stretcher in restraints. She was awake and alert however slightly confused and disoriented. She thought she was in [facility] [place] however she could give me the right date month and year. Her mental status appeared to be fluctuating. Her speech was slightly slurred. She was moving all 4 extremities. Patient is a smoker and her carboxyhemoglobin on her ABG on arrival was 14 which was decreased to 10% subsequently. History was obtained by discussion with nursing staff and reviewing records. Patient is a very poor historian at this time. SUBJ 04/23/18: required Precedex overnight for intermittent confusion. Blood sugar control has improved. Currently patient is AAO 3. Cooperative. Will wean to DC Precedex and restraints. Start up to chair, start ADA diet. Blood pressure remains uncontrolled I have restarted home medication including Norvasc and Coreg. Objective Vital Signs / I&O: Vital Signs 04/22/18 10:55 04/22/18 11:00 04/22/18 12:00 Temperature 99.3 F 97.9 F Pulse Rate 90 80 83 Respiratory Rate 19 23 Blood Pressure 172/94 H 133/74 Pulse Oximetry 91 L 97 97 04/22/18 16:00 04/22/18 20:00 04/22/18 20:12 Temperature 97.9 F 98.0 F Pulse Rate 73 74 Respiratory Rate 17 20 Blood Pressure 139/76 141/91 H Pulse Oximetry 97 96 98 04/23/18 00:00 04/23/18 04:00 04/23/18 07:30 Temperature 98.1 F 97.9 F Pulse Rate 74 64 Respiratory Rate 20 22 Blood Pressure 125/87 166/126 H Pulse Oximetry 97 99 98 Intake & Output 04/22/18 04/23/18 04/23/18 18:59 06:59 18:59 Intake Total 1055 / 1055 1175 / 1175 Output Total 800 / 800 800 / 800 Balance 255 / 255 375 / 375 Weight 99.3 kg 102.2 kg Intake: IV 1055 / 1055 1155 / 1155 Precedex Inj 200 MCG In NS Inj 50 / 50 150 / 150 48 ML @ 0.2 MCG/KG/HR 4.96 mls/ hr IV.CONT TITRATE PRN Rx#: [id number] KCl Inj 10 MEQ In NS Inj 1,000 1005 / 1005 1005 / 1005 ML @ 125 mls/hr IV.CONT .Q8H3M [facility] Rx#:[id number] Oral 20 / 20 Output: Urine Amount (Catheter) 800 / 800 800 / 800 Indwelling Urethral Catheter 800 / 800 800 / 800 Other: Weight On Admission 99.3 kg Result Diagrams: 04/21/18 23:18 04/21/18 23:18 Objective Remarks: GEN: 62-year-old obese female lying in bed HEENT: No pallor or icterus, tongue moist, LAURA Neck: No JVD Chest/pulmonary: CTA bilaterally Cardiovascular: S1-S2 regular no gallop or murmur GI/abdomen: Soft, nontender, bowel sounds present Extremities: Warm bilaterally, no edema Neuro: , Awake alert, oriented to person place and somewhat to time. Follows commands 4 no focal deficits Assessment and Plan - Assessment and Plan Plan: 62-year-old female with: Metabolic encephalopathy Confusion/delirium-resolving Uncontrolled diabetes mellitus Uncontrolled hypertension Lactic acidosis COPD on nocturnal home O2 Plan: Neuro: Follow neuro status. Head CT negative for bleed. Patient reportedly takes trazodone-continue to hold Neuro exam is improved, restart Neurontin. Discontinue Precedex. EEG normal, Cancel neuro consult Cardiovascular: IV hydration, watch for hypotension. Check CMP, lactate Pulmonary: Chest x-ray clear currently. Resume home bronchodilators and supplemental O2 as needed in view of her history of COPD. Resume prednisone GI/liver: Start ADA p.o. diet as tolerated if she passes a swallow evaluation. Renal/: IV hydration, strict intake output, monitor and replete electrolytes, follow BUN/creatinine Endocrine: SSI for glycemic control as needed, start Levemir 10 units every 12 if tolerating PO diet ID: Patient has not had any fever and does not have leukocytosis. UA is clear chest x-ray is clear. Hold off on antibiotics at this time. Heme: Follow CBC Prophylaxis: SCDs. On Pradaxa at home. Will restart once confirmed Code Status: Full
[2018-04-23] MEDS: Senna/Docusate Sodium 8.6/50 MG Tablet PO SCH ×2 (09:13→20:07)
[2018-04-23] MEDS: Carvedilol 6.25 MG Tablet PO SCH ×2 (09:56→20:08)
[2018-04-23] MEDS: Insulin NovoLOG Aspart Correctional Sugar Inj SQ SCH ×4 (09:56→20:08)
[2018-04-23] MEDS: Insulin Detemir Inj 1,000 UNIT/10 ML Vial SQ SCH ×2 (09:56→20:08)
[2018-04-23] MEDS: amLODIPine 10 MG Tablet PO SCH (09:56)
[2018-04-23] MEDS: predniSONE 20 MG Tablet PO SCH (09:56)
[2018-04-23] MEDS: Gabapentin 300 MG Capsule PO SCH ×3 (09:57→18:04)
[2018-04-23] MEDS: Budesonide-Formoterol 160/4.5 MCG 6 GM Inhaler INH SCH ×2 (09:58→20:09)
[2018-04-23 10:54] LABS: Hematocrit 44.2 % (35.0-46.0); Hemoglobin 14.6 gm/dL (11.6-15.3); Mean Corpuscular HGB Conc 33.2 % (32.0-36.0); Mean Corpuscular Hemoglobin 28.4 pg (27.0-34.0); Mean Corpuscular Volume 85.6 fL (80.0-100.0); Mean Platelet Volume 9.3 fL (7.0-11.0); Platelet Count 251 th/mm3 (150-450); Red Blood Count 5.16 mil/mm3 (4.00-5.30); Red Cell Distribution Width 16.5 % (11.6-17.2)
[2018-04-23 11:18] LABS: Alanine Aminotransferase 30 U/L (10-53); Albumin 2.9 g/dL (3.4-5.0); Alkaline Phosphatase 98 U/L (45-117); Anion Gap 8 meq/L (5-15); Aspartate Aminotransferase 20 U/L (15-37); Blood Urea Nitrogen 14 mg/dL (7-18); Calcium 8.1 mg/dL (8.5-10.1); Carbon Dioxide 31.2 meq/L (21.0-32.0); Chloride 100 meq/L (98-107); Glomerular Filtration Rate 60 mL/min (>89); Glucose,Random 227 mg/dL (74-106); Magnesium 1.7 mg/dL (1.5-2.5); Potassium 3.8 meq/L (3.5-5.1); Sodium 139 meq/L (136-145)
[2018-04-24] MEDS: Chlorhexidine Gluconate 2% 1 Pack (2 Cloths) TOPICAL SCH (04:56)
[2018-04-24] MEDS: Insulin NovoLOG Aspart Correctional Sugar Inj SQ SCH ×2 (09:03→13:21)
[2018-04-24] MEDS: amLODIPine 10 MG Tablet PO SCH (09:06)
[2018-04-24] MEDS: Budesonide-Formoterol 160/4.5 MCG 6 GM Inhaler INH SCH (09:06)
[2018-04-24] MEDS: predniSONE 20 MG Tablet PO SCH (09:06)
[2018-04-24] MEDS: Senna/Docusate Sodium 8.6/50 MG Tablet PO SCH (09:06)
[2018-04-24] MEDS: Insulin Detemir Inj 1,000 UNIT/10 ML Vial SQ SCH (09:06)
[2018-04-24] MEDS: Gabapentin 300 MG Capsule PO SCH ×2 (09:06→13:23)
[2018-04-24] MEDS: Carvedilol 6.25 MG Tablet PO SCH (10:47)
--- NOTE | 2018-04-24 14:34 | P.PNIM ---
Subjective Interval history: 62-year-old female with a medical history significant for diabetes mellitus who was brought to the ER last night with altered mental status. Per documentation she was not acting her normal self according to a friend while they were having dinner. EMS checked her sugar at home which is 566. Patient on arrival in the ER said "I am not feeling good I am just tired". Patient had an elevated lactic acid in the ER however has not had any fever and does not have a white count. Her UA is clear and her chest x-ray is clear. She was initially felt to have sepsis and received empiric antibiotics in the ER. A head CT in the ER was negative for any bleed. Critical care medicine was requested to admit the patient to the ICU. When I evaluated the patient in the ER she was laying in the ER stretcher in restraints. She was awake and alert however slightly confused and disoriented. She thought she was in [facility] however she could give me the right date month and year. Her mental status appeared to be fluctuating. Her speech was slightly slurred. She was moving all 4 extremities. Patient is a smoker and her carboxyhemoglobin on her ABG on arrival was 14 which was decreased to 10% subsequently. History was obtained by discussion with nursing staff and reviewing records. Patient is a very poor historian at this time. SUBJ 04/23/18: required Precedex overnight for intermittent confusion. Blood sugar control has improved. Currently patient is AAO 3. Cooperative. Will wean to DC Precedex and restraints. Start up to chair, start ADA diet. Blood pressure remains uncontrolled I have restarted home medication including Norvasc and Coreg. 9-4 doing well TRANSFERRED TO OUR SERVICE NO CONFUSION APPRECIATED DW RN AND PT VERY ORIENTED DC TO HOME TODAY Physical Exam Vital signs: Vital Signs 04/23/18 16:00 04/23/18 20:00 04/23/18 20:04 Temperature 98.1 F 98.7 F Pulse Rate 79 91 H Respiratory Rate 20 22 Blood Pressure 138/76 145/80 H Pulse Oximetry 95 95 95 04/24/18 00:00 04/24/18 04:00 04/24/18 07:37 Temperature 98 F 98.7 F Pulse Rate 74 70 Respiratory Rate 24 18 Blood Pressure 131/88 141/68 H Pulse Oximetry 95 97 Intake & Output 04/23/18 04/24/18 04/24/18 18:59 06:59 18:59 Intake Total 1989 100 / 100 Output Total 3750 / 3750 0 / 0 Balance -1760 / -1760 100 / 100 Weight 97.1 kg Intake: IV 1030 / 1030 Precedex Inj 200 MCG In NS Inj 25 / 25 48 ML @ 0.2 MCG/KG/HR 4.96 mls/ hr IV.CONT TITRATE PRN Rx#: [id number] KCl Inj 10 MEQ In NS Inj 1,000 1005 / 1005 ML @ 125 mls/hr IV.CONT .Q8H3[facility] Rx#:[id number] Oral 960 / 960 100 / 100 Output: Urine 0 / 0 Urine Amount (Catheter) 3750 / 3750 Indwelling Urethral Catheter 3750 / 3750 Other: Date of Last Bowel Movement 04/23/18 04/23/18 # Bowel Movements 2 # Incontinent Bowel Movements 0 Narrative: GENERAL: Awake alert and oriented 3 talkative and cooperative SKIN: Warm and dry. HEAD: Atraumatic. Normocephalic. EYES: Pupils equal and round. No scleral icterus. No injection or drainage. EOMI ENT: No nasal bleeding or discharge. Mucous membranes pink and moist. Tongue is midline NECK: Trachea midline. No JVD. Supple CARDIOVASCULAR: Regular rate and rhythm. S1-S2 no S3 or S4 RESPIRATORY: No accessory muscle use. Clear to auscultation. Breath sounds equal bilaterally. GASTROINTESTINAL: Abdomen soft, non-tender, nondistended. Hepatic and splenic margins not palpable. MUSCULOSKELETAL: Extremities without clubbing, cyanosis, or edema. No obvious deformities. NEUROLOGICAL: Awake and alert. No obvious cranial nerve deficits. Motor grossly within normal limits. Five out of 5 muscle strength in the arms and legs. Normal speech. PSYCHIATRIC: Appropriate mood and affect; insight and judgment normal. - Urinary Catheter Management Indwelling Urethral Catheter Cath placed during this visit: yes, but has since been removed by the nurse Reason for continuing: Decision to DC catheter Insertion date: 04/22/18 Insertion time: 01:43 Removal date: 04/23/18 Removal time: 08:00 Results - Labs CBC & Chem 7: 04/23/18 10:38 04/23/18 10:38 Laboratory Results - last 24 hr 04/23/18 04/23/18 04/24/18 18:00 19:40 08:31 POC Glucose 298 H 287 H 150 H 04/24/18 12:49 POC Glucose 246 H Microbiology 04/21/18 23:18 Blood - Peripheral Aerobic Blood Culture - Preliminary No growth in 3 days 04/21/18 23:18 Blood - Peripheral Anaerobic Blood Culture - Preliminary No growth in 3 days 04/21/18 23:05 Blood - Peripheral Aerobic Blood Culture - Preliminary No growth in 3 days 04/21/18 23:05 Blood - Peripheral Anaerobic Blood Culture - Preliminary No growth in 3 days - Imaging Chest X-Ray 04/21/18 23:03 CONCLUSION: Cardiomegaly. Clear lungs. Head CT 04/22/18 00:00 CONCLUSION: 1. No acute intracranial abnormality. . - Procedures NONE Assessment and Plan - Plan 62-year-old female with: Metabolic encephalopathy-totally resolved Confusion/delirium-resolving--now totally resolved Uncontrolled diabetes mellitus Uncontrolled hypertension Lactic acidosis--improved COPD on nocturnal home O2 Plan: Neuro: Follow neuro status. Head CT negative for bleed. Patient reportedly takes trazodone-continue to hold Neuro exam is improved, restart Neurontin. Discontinue Precedex. EEG normal, Cancel neuro consult Cardiovascular: IV hydration, watch for hypotension. Check CMP, lactate Pulmonary: Chest x-ray clear currently. Resume home bronchodilators and supplemental O2 as needed in view of her history of COPD. Resume prednisone GI/liver: Start ADA p.o. diet as tolerated if she passes a swallow evaluation. Renal/: IV hydration, strict intake output, monitor and replete electrolytes, follow BUN/creatinine Endocrine: SSI for glycemic control as needed, start Levemir 10 units every 12 if tolerating PO diet ID: Patient has not had any fever and does not have leukocytosis. UA is clear chest x-ray is clear. Hold off on antibiotics at this time. Heme: Follow CBC Prophylaxis: SCDs. On Pradaxa at home. Will restart once confirmed Patient is much better Oriented 3 Talkative and cooperative Can be discharged home today Wants to go home Discussed with RN and patient Code Status: Full code Discussed Condition With: RN and patient Discharge Planning: Discharge to home today
--- NOTE | 2018-04-24 14:40 | P.DS ---
Date of admission: 04/22/18 01:11 Primary care physician: UNKNOWN Attending physician on discharge: Jerad Fam Anticipated date of discharge: 04/24/18 Brief History from admission: 62-year-old female with a medical history significant for diabetes mellitus who was brought to the ER last night with altered mental status. Per documentation she was not acting her normal self according to a friend while they were having dinner. EMS checked her sugar at home which is 566. Patient on arrival in the ER said "I am not feeling good I am just tired". Patient had an elevated lactic acid in the ER however has not had any fever and does not have a white count. Her UA is clear and her chest x-ray is clear. She was initially felt to have sepsis and received empiric antibiotics in the ER. A head CT in the ER was negative for any bleed. Critical care medicine was requested to admit the patient to the ICU. When I evaluated the patient in the ER she was laying in the ER stretcher in restraints. She was awake and alert however slightly confused and disoriented. She thought she was in [facility] however she could give me the right date month and year. Her mental status appeared to be fluctuating. Her speech was slightly slurred. She was moving all 4 extremities. Patient is a smoker and her carboxyhemoglobin on her ABG on arrival was 14 which was decreased to 10% subsequently. History was obtained by discussion with nursing staff and reviewing records. Patient is a very poor historian at this time. Patient update on day of discharge: 62-year-old female with a medical history significant for diabetes mellitus who was brought to the ER last night with altered mental status. Per documentation she was not acting her normal self according to a friend while they were having dinner. EMS checked her sugar at home which is 566. Patient on arrival in the ER said "I am not feeling good I am just tired". Patient had an elevated lactic acid in the ER however has not had any fever and does not have a white count. Her UA is clear and her chest x-ray is clear. She was initially felt to have sepsis and received empiric antibiotics in the ER. A head CT in the ER was negative for any bleed. Critical care medicine was requested to admit the patient to the ICU. When I evaluated the patient in the ER she was laying in the ER stretcher in restraints. She was awake and alert however slightly confused and disoriented. She thought she was in [facility] however she could give me the right date month and year. Her mental status appeared to be fluctuating. Her speech was slightly slurred. She was moving all 4 extremities. Patient is a smoker and her carboxyhemoglobin on her ABG on arrival was 14 which was decreased to 10% subsequently. History was obtained by discussion with nursing staff and reviewing records. Patient is a very poor historian at this time. SUBJ 04/23/18: required Precedex overnight for intermittent confusion. Blood sugar control has improved. Currently patient is AAO 3. Cooperative. Will wean to DC Precedex and restraints. Start up to chair, start ADA diet. Blood pressure remains uncontrolled I have restarted home medication including Norvasc and Coreg. 9-4 doing well TRANSFERRED TO OUR SERVICE NO CONFUSION APPRECIATED DW RN AND PT VERY ORIENTED DC TO HOME TODAY DS: Diagnosis - Discharge Diagnosis (1) Metabolic encephalopathy Status: Acute (2) Dependence on nocturnal oxygen therapy Status: Chronic (3) Diabetes Status: Acute (4) HTN (hypertension) Status: Chronic (5) PE (pulmonary thromboembolism) Status: Chronic (6) H/O type 2 diabetes mellitus Status: Chronic (7) H/O: hypertension Status: Chronic (8) History of chronic obstructive pulmonary disease Status: Chronic (9) Smoking Status: Chronic DS: Summary Hospital Course: 62-year-old female with a medical history significant for diabetes mellitus who was brought to the ER last night with altered mental status. Per documentation she was not acting her normal self according to a friend while they were having dinner. EMS checked her sugar at home which is 566. Patient on arrival in the ER said "I am not feeling good I am just tired". Patient had an elevated lactic acid in the ER however has not had any fever and does not have a white count. Her UA is clear and her chest x-ray is clear. She was initially felt to have sepsis and received empiric antibiotics in the ER. A head CT in the ER was negative for any bleed. Critical care medicine was requested to admit the patient to the ICU. When I evaluated the patient in the ER she was laying in the ER stretcher in restraints. She was awake and alert however slightly confused and disoriented. She thought she was in [facility] however she could give me the right date month and year. Her mental status appeared to be fluctuating. Her speech was slightly slurred. She was moving all 4 extremities. Patient is a smoker and her carboxyhemoglobin on her ABG on arrival was 14 which was decreased to 10% subsequently. History was obtained by discussion with nursing staff and reviewing records. Patient is a very poor historian at this time. SUBJ 04/23/18: required Precedex overnight for intermittent confusion. Blood sugar control has improved. Currently patient is AAO 3. Cooperative. Will wean to DC Precedex and restraints. Start up to chair, start ADA diet. Blood pressure remains uncontrolled I have restarted home medication including Norvasc and Coreg. 9-4 doing well TRANSFERRED TO OUR SERVICE NO CONFUSION APPRECIATED DW RN AND PT VERY ORIENTED DC TO HOME TODAY - Time Spent with Patient Total time spent providing and/or coordinating discharge services: Greater than 30 minutes Exam Vital signs: Vital Signs 04/23/18 16:00 04/23/18 20:00 04/23/18 20:04 Temperature 98.1 F 98.7 F Pulse Rate 79 91 H Respiratory Rate 20 22 Blood Pressure 138/76 145/80 H Pulse Oximetry 95 95 95 04/24/18 00:00 04/24/18 04:00 04/24/18 07:37 Temperature 98 F 98.7 F Pulse Rate 74 70 Respiratory Rate 24 18 Blood Pressure 131/88 141/68 H Pulse Oximetry 95 97 Intake & Output 04/23/18 04/24/18 04/24/18 18:59 06:59 18:59 Intake Total 1989 100 / 100 Output Total 3750 / 3750 0 / 0 Balance -1760 / -1760 100 / 100 Weight 97.1 kg Intake: IV 1030 / 1030 Precedex Inj 200 MCG In NS Inj 25 / 25 48 ML @ 0.2 MCG/KG/HR 4.96 mls/ hr IV.CONT TITRATE PRN Rx#: [id number] KCl Inj 10 MEQ In NS Inj 1,000 1005 / 1005 ML @ 125 mls/hr IV.CONT .Q8H3M [facility] Rx#:[id number] Oral 960 / 960 100 / 100 Output: Urine 0 / 0 Urine Amount (Catheter) 3750 / 3750 Indwelling Urethral Catheter 3750 / 3750 Other: Date of Last Bowel Movement 04/23/18 04/23/18 # Bowel Movements 2 # Incontinent Bowel Movements 0 Narrative: GENERAL: Awake alert and oriented 3 talkative and cooperative SKIN: Warm and dry. HEAD: Atraumatic. Normocephalic. EYES: Pupils equal and round. No scleral icterus. No injection or drainage. EOMI ENT: No nasal bleeding or discharge. Mucous membranes pink and moist. Tongue is midline NECK: Trachea midline. No JVD. Supple CARDIOVASCULAR: Regular rate and rhythm. S1-S2 no S3 or S4 RESPIRATORY: No accessory muscle use. Clear to auscultation. Breath sounds equal bilaterally. GASTROINTESTINAL: Abdomen soft, non-tender, nondistended. Hepatic and splenic margins not palpable. MUSCULOSKELETAL: Extremities without clubbing, cyanosis, or edema. No obvious deformities. NEUROLOGICAL: Awake and alert. No obvious cranial nerve deficits. Motor grossly within normal limits. Five out of 5 muscle strength in the arms and legs. Normal speech. PSYCHIATRIC: Appropriate mood and affect; insight and judgment normal. Results Procedures completed during hospitalization: NONE Completed studies during hospitalization: Laboratory Results WBC 12.0 th/mm3 (4.0-11.0) H 04/23/18 10:38 RBC 5.16 mil/mm3 (4.00-5.30) 04/23/18 10:38 Hgb 14.6 gm/dL (11.6-15.3) 04/23/18 10:38 Hct 44.2 % (35.0-46.0) 04/23/18 10:38 MCV 85.6 fL (80.0-100.0) 04/23/18 10:38 MCH 28.4 pg (27.0-34.0) 04/23/18 10:38 MCHC 33.2 % (32.0-36.0) 04/23/18 10:38 RDW 16.5 % (11.6-17.2) 04/23/18 10:38 Plt Count 251 th/mm3 (150-450) 04/23/18 10:38 MPV 9.3 fL (7.0-11.0) 04/23/18 10:38 Prelim Diff (Auto) Slide review pending 04/21/18 23:18 Neut % (Auto) 79.5 % (16.0-70.0) H 04/21/18 23:18 Lymph % (Auto) 14.6 % (9.0-44.0) 04/21/18 23:18 [place] % (Auto) 5.3 % (0.0-8.0) 04/21/18 23:18 Eos % (Auto) 0.3 % (0.0-4.0) 04/21/18 23:18 Baso % (Auto) 0.3 % (0.0-2.0) 04/21/18 23:18 Neut # (Auto) 8.6 th/mm3 (1.8-7.7) H 04/21/18 23:18 Lymph # (Auto) 1.6 th/mm3 (1.0-4.8) 04/21/18 23:18 [place] # (Auto) 0.6 th/mm3 (0.0-0.9) 04/21/18 23: Eos # (Auto) 0.0 th/mm3 (0.0-0.4) 04/21/18 23:18 Baso # (Auto) 0.0 th/mm3 (0.0-0.2) 04/21/18 23:18 WBC Differential . 04/21/18 23:18 Diff Scan Auto diff confirmed 04/21/18 23: Differential Comment . 04/21/18 23:18 Platelet Estimate Normal (Normal) 04/21/18 23:18 Platelet Morphology Normal (Normal) 04/21/18 23: RBC Morphology Normal (Normal) 04/21/18 23:18 Puncture Site Left radial 04/22/18 02:02 Patient Temperature 98.6 04/22/18 02:02 O2 Saturation 81 % (90-100) L* 04/22/18 02:02 ABG pH 7.38 (7.380-7.420) 04/22/18 02:02 ABG pCO2 43 mmHg (38-42) H 04/22/18 02:02 ABG pO2 57 mmHg (61-120) L* 04/22/18 02:02 ABG HCO3 25 mmol/L (22-26) 04/22/18 02:02 ABG O2 Content 14.0 Vol % (12.0-20.0) 04/22/18 02:02 ABG Base Excess 0.2 mmol/L (-2-2) 04/22/18 02:02 ABG Methemoglobin 0.5 % (0-2) 04/22/18 02:02 Marco A Test Present 04/22/18 02:02 Hemoglobin 12.3 G/DL (12.0-16.0) 04/22/18 02:02 Carboxyhemoglobin 10.0 % (0-4) H* 04/22/18 02:02 Inspired O2 21 % 04/22/18 02:02 Critical Value Yes 04/22/18 02:02 Sodium 139 meq/L (136-145) 04/23/18 10:38 Potassium 3.8 meq/L (3.5-5.1) 04/23/18 10:38 Chloride 100 meq/L (98-107) D 04/23/18 10:38 Carbon Dioxide 31.2 meq/L (21.0-32.0) 04/23/18 10:38 Anion Gap 8 meq/L (5-15) 04/23/18 10:38 BUN 14 mg/dL (7-18) 04/23/18 10:38 Creatinine 0.95 mg/dL (0.50-1.00) 04/23/18 10:38 Estimated GFR 60 mL/min (>89) L 04/23/18 10:38 POC Glucose 246 mg/dl (68-110) H 04/24/18 12:49 Random Glucose 227 mg/dL (74-106) H D 04/23/18 10:38 Lactic Acid 1.0 mmol/L (0.4-2.0) 04/23/18 10:38 Calcium 8.1 mg/dL (8.5-10.1) L 04/23/18 10:38 Magnesium 1.7 mg/dL (1.5-2.5) 04/23/18 10:38 Total Bilirubin 0.5 mg/dL (0.2-1.0) 04/23/18 10:38 AST 20 U/L (15-37) 04/23/18 10:38 ALT 30 U/L (10-53) 04/23/18 10:38 Alkaline Phosphatase 98 U/L (45-117) 04/23/18 10:38 Troponin I 0.02 ng/mL (0.02-0.05) 04/21/18 23:18 Total Protein 7.0 g/dL (6.4-8.2) 04/23/18 10:38 Albumin 2.9 g/dL (3.4-5.0) L 04/23/18 10:38 Beta-Hydroxybutyric Acd 0.08 mmol/L (0.00-0.39) 04/21/18 23:18 Urine Color Yellow (Yellw/Straw) 04/22/18 01:27 Urine Clarity Clear (Clear) 04/22/18 01:27 Urine pH 6.0 (5.0-8.5) 04/22/18 01:27 Ur Specific [place] 1.028 (1.002-1.035) 04/22/18 01:27 Urine Protein 30 mg/dL (Neg-Trace) H 04/22/18 01:27 Urine Glucose (UA) 500 or greater mg/dL (Negative) 04/22/18 01:27 Urine Ketones Negative mg/dL (Negative) 04/22/18 01:27 Urine Occult Blood Negative (Negative) 04/22/18 01:27 Urine Nitrate Negative (Negative) 04/22/18 01:27 Urine Bilirubin Negative (Negative) 04/22/18 01:27 Urine Urobilinogen Less than 2 mg/dL (Less than 2) 04/22/18 01:27 Ur Leukocyte Esterase Negative (Negative) 04/22/18 01:27 Urine RBC Less than 1 /hpf (0-3) 04/22/18 01:27 Urine WBC 1 /hpf (0-5) 04/22/18 01:27 Ur Squamous Epith Cells 1 /hpf (0-5) 04/22/18 01:27 Urine Mucus Few /lpf (Occasional) H 04/22/18 01:27 Micro UA Comment Culture not ind 04/22/18 01:27 Ur Microscopic Review Not Reportable 04/22/18 01:27 Urine Culture Comments Culture not ind 04/22/18 01:27 Nasal Screen MRSA (PCR) Not detected (Negative) 04/22/18 23:10 Impressions Chest X-Ray 04/21/18 23:03 CONCLUSION: Cardiomegaly. Clear lungs. Head CT 04/22/18 00:00 CONCLUSION: 1. No acute intracranial abnormality. . Labs on day of discharge: Labs from last 24 hours 04/24/18 04/24/18 04/23/18 12:49 08:31 19:40 POC Glucose 246 H 150 H 287 H 04/23/18 18:00 POC Glucose 298 H Preliminary micro results at discharge 04/21/18 23:18 Aerobic Blood Culture - Preliminary Blood - Peripheral No growth in 3 days Anaerobic Blood Culture - Preliminary No growth in 3 days 04/21/18 23:05 Aerobic Blood Culture - Preliminary Blood - Peripheral No growth in 3 days Anaerobic Blood Culture - Preliminary No growth in 3 days - Impressions ITS Impressions Chest X-Ray 04/21/18 23:03 CONCLUSION: Cardiomegaly. Clear lungs. Head CT 04/22/18 00:00 CONCLUSION: 1. No acute intracranial abnormality. . Discharge Plan - Discharge Disposition Patient Disposition: /[facility] Service - Discharge Condition Condition: Serious - Discharge Order Discharge Orders: Discharge Order (Routine); Ordered 04/24/18 Ordered By: Jerad Fam - Discharge Details Anticipated Discharge Date: 04/24/18 Discharge Comment: DC TO HOME WITH [facility] - Physicians Team Primary Care Provider: UNKNOWN, Attending Provider: Jerad Fam Other Providers: [employer]
--- NOTE | 2018-04-24 14:43 | P.DCO ---
- Physical Therapy Order: Evaluate and treat, Improve ambulation, Strength and gait training - Occupational Therapy Order: Evaluate and treat, Improve ADL, Gross motor coordination, Fine motor coordination - Home Health Nursing Order: Medical education, Signs/symptoms of disease process, Diabetic education , Oxygen administration education, Medication education-adverse effect - Home Health Aide Order: To assist in: Bathing and personal care, golf club facer and meal prep - Certification I have seen patient Leticia Salcido on 04/24/18. My clinical findings support the need for the requested home health care services because: Limited mobility due to disease progression, Patient has SOB, Deconditioned with increased weakness, Medication compliance is questionable, Impaired cognition/judgement I certify that my clinical findings support that this patient is homebound because: Hx COPD - exertion dyspnea/weakness, Unsteady gait/balance
[2018-04-24 15:01] VITALS: BP 120/58; PULSE 70; RESP 19; TEMP 98.1; O2SAT 95
== END 2018-04-24 16:04 | disposition home health service (06) ==
LOC: NEPC 22:50 → NEDA 04-22 01:11 → N03 04-22 11:05
PROVIDERS: ADMIT Hospitalist; ATTEND Hospitalist